=== PATIENT | female | born 1990 | race African-American/Black ===

== ENCOUNTER 2017-01-26 12:29 | Emergency (ER) | payer OTHER, MEDICAID ==
[2017-01-26 12:43] VITALS: BP 126/74; PULSE 77
--- NOTE | 2017-01-26 13:00 | PD ---
HPI Chief Complaint Right back and flank pain for 24 hours after vomiting. Date Seen: Jan 26, 2017 Time Seen: 12:53 Travel History International Travel<30 Days: No Contact w/Intl Traveler<30Days: No Known Affected Area: No History of Present Illness HPI Patient is 26-year-old black female at [address] Jerome for care presents with approximately 24 hours of worsening right back pain. Pain is mainly in the right flank and mid right back not in the CVA, the patient states the pain began her she was throwing up at home. She is been having nausea and vomiting at home for quite some time and is had no medication at home to take for that. heart rate tracing is reactive and contractions about 8 minutes apart and noted Weeks Gestation: 35 Para: 0 : 1 History Social History Alcohol Use: No Tobacco Use: No Substance Abuse: No Allergies-Medications (Allergen,Severity, Reaction): Uncoded Allergies: no known allergy (Allergy, Unknown, 01/26/17) Review of Systems General / Constitutional: No: Fever, Weight Gain, Chills, Other Eyes: No: Diploplia, Blurred Vision, Visual changes, Pain, Photophobia HENT: No: Headaches, Vertigo, Lightheadedness Cardiovascular: No: Irregular Rhythm, Chest Pain or Discomfort, Palpitations, Tachycardia, Syncope, Varicosities, Edema, Cyanosis Respiratory: No: Cough, Short of Breath, Other Gastrointestinal: No: Nausea, Vomiting, Diarrhea Genitourinary: No: Decreased Urinary Output, Oliguria Musculoskeletal: No: Limited ROM, Weakness, Cramping, Edema, Pain Skin: No Rash, No Itching, No Dryness, No Lumps, No Change in Pigmentation, No Change in Nails, No Alopecia, No Lesions Neurologic: No: Weakness, Dizziness, Syncope, Focal Abnormalities, Coordination Problem, Headache, Slurred Speech, Seizures Psychiatric: No: Depression, Suicidal Ideations, Homicidal Ideation Endocrine: No: Heat Intolerance, Cold Intolerance, Polydipsia, Polyuria, Other Physical Exam Vital Signs Date Time Temp Pulse Resp B/P (MAP) Pulse Ox O2 Delivery O2 Flow Rate FiO2 01/26/17 12:43 77 126/74 (91) Narrative GENERAL: Well-nourished, well-developed patient. SKIN: Warm and dry. HEAD: Normocephalic and atraumatic. EYES: No scleral icterus. No injection or drainage. ENT: No nasal drainage noted. Mucous membranes pink. Airway patent. NECK: Supple, trachea midline. No JVD. CARDIOVASCULAR: Regular rate and rhythm without murmurs, gallops, or rubs. RESPIRATORY: Breath sounds equal bilaterally. No accessory muscle use. BREASTS: Bilateral exam showed no masses , no retractions, no nipple discharge. ABDOMEN/GI: Abdomen soft, non-tender, bowel sounds present, no rebound, no guarding , no CVA tenderness on either side, very mild tenderness to palpation on the right flank mid back Gravid to [-35] weeks size Fundal Height: [-35] GENITOURINARY: External Genitalia: intact and normal in appearance BUS glands: [-] Cervix: [-Posterior] Dilatation: [1-] Effacement: [-Thick] Station: [-3] Presentation: [vtx-] Membranes: [intact ] Uterine Contractions: [Every 4 minutes approximately-] FHT's: Category: [1-] Baseline: [133-] Reactive: [yes-] Variability: [-mod] Decels: [none-] EXTREMITIES: No cyanosis or edema. BACK: Nontender without obvious deformity. No CVA tenderness. Some tenderness in the right flank and right mid back, but when I hit firmly in the CVA area she said that "felt good " NEUROLOGICAL: Awake and alert. Motor and sensory grossly within normal limits. Five out of 5 muscle strength in all muscle groups. Normal speech. Data Data Orders Orders Vital Signs (Adult) .ON ADMISSION (01/26/17 12:47) ^ Labor Status (01/26/17 12:47) Lactated Ringer's 1000 Ml Inj (Lr 1000 M (01/26/17 12:47) Fentanyl Inj (Fentanyl Inj) (01/26/17 13:00) Urinalysis - C+S If Indicated (01/26/17 12:49) Cbc No Diff, Includes Plts (01/26/17 12:49) Basic Metabolic Panel (Bmp) (01/26/17 12:49) Ob/Psych Drug Screen, Urine (01/26/17 12:49) Ondansetron Inj (Zofran Inj) (01/26/17 13:00) Metoclopramide Inj (Reglan Inj) (01/26/17 13:00) MDM Interpretation(s) 26-year-old white female at 35 weeks presents with right flank pain after vomiting at home. Urinalysis and clinical symptoms consistent with moderate to severe dehydration and no UTI,. CBC BMP within normal limits, patient given a liter of IV fluid IV Zofran and Reglan and 50 purnima grams fentanyl IV, she did improve after that with a decrease in her pain. What you contractions we were seeing stopped., heart rate tracing is reactive Plan Plan to discharge home to bedrest ,Tylenol, heating pad on her back and side , increase fluid intake, prescriptions for Phenergan by mouth and suppository, and follow-up with Dr. Jerome with the next several days if not improved Diagnosis Diagnosis: Primary Impression: Dehydration, moderate Additional Impression: Back pain complicating in third trimester Disposition: 01 DISCHARGE HOME Condition: Stable Scripts Promethazine Supp (Phenergan Supp) 25 Mg Supp 25 MG RECTAL Q6H Y for NAUSEA OR VOMITING for 5 Days, #6 SUPP 0 Refills Prov: Cooper Guthrie II, MD 01/26/17 Promethazine (Phenergan) 25 Mg Tablet 25 MG PO Q6H Y for NAUSEA OR VOMITING for 10 Days, #30 TAB 0 Refills Prov: Cooper Guthrie II, MD 01/26/17 Cooper Guthrie II, MD Jan 26, 2017 13:00
[2017-01-26 13:28] LABS: HEMATOCRIT 38.1 % (35.0-46.0); MEAN CELL VOLUME 91.9 FL (80.0-100.0); MEAN CORPUSCULAR HEMOGLOBIN 31.5 PG (27.0-34.0); MEAN CORPUSCULAR HGB CONC 34.3 % (32.0-36.0); PLATELET COUNT 296 TH/MM3 (150-450); RED BLOOD COUNT 4.14 MIL/MM3 (4.00-5.30); RED CELL DISTRIBUTION WIDTH 13.2 % (11.6-17.2); REVIEW FLAG FINAL
[2017-01-26 13:32] LABS: BACTERIA, URINE RARE /hpf; BLOOD, URINE NEG (NEG); COMMENT (UR) CULT NOT INDICATED; CULTURE IF INDICATED CULT NOT INDICATED; GLUCOSE,URINE NEG (NEG); KETONE, URINE 150 mg/dL (NEG); MUCUS URINE FEW /lpf (OCC); NITRITE,URINE NEG (NEG); PH, URINE 6.5 (5.0-8.5); SQUAMOUS EPITHELIAL CELL URINE 8 /hpf (0-5)
[2017-01-26 13:35] LABS: URINE COLOR DARK-ORANGE (YELLW/STRAW)
[2017-01-26 13:42] LABS: BICARBONATE 22.3 MEQ/L (21.0-32.0); POTASSIUM 3.9 MEQ/L (3.5-5.1)
[2017-01-26] MEDS ORDERED: PROM25TA10 PO (13:50)
[2017-01-26 13:51] VITALS: RESP 18
[2017-01-26] MEDS ORDERED: PROM1SUP7 RECTAL (13:51)
[2017-01-26] MEDS ORDERED: LACTATED RINGER'S 1000 ML INJ 1,000 ML IV SCH (14:00)
[2017-01-26] MEDS ORDERED: ONDANSETRON HCL 4 MG/2 ML VIAL IV PUSH ONE (14:00)
[2017-01-26] MEDS ORDERED: METOCLOPRAMIDE HCL 10 MG/2 ML VIAL IV PUSH ONE (14:00)
[2017-01-30 09:57] LABS: PHENCYCLIDINE URINE NEG (NEG)
[2017-01-30 09:58] LABS: BATH SALTS (MDPV) UR NEG (NEG); ECSTASY (MDMA) UR NEG (NEG); GABAPENTIN UR NEG (NEG); HEROIN (6-ACETYLMORPHINE) UR NEG (NEG); HYDROMORPHONE U NEG (NEG); K2 SPICE UR NEG (NEG); OBMETHADONE UR NEG (NEG)
== END 2017-01-26 14:30 | disposition home or self-care (01) ==
LOC: HOBED 12:29
DX: O99.283 Endocrine, nutritional and metabolic diseases complicating pregnancy, third trimester (principal); E86.0 Dehydration; M54.9 Dorsalgia, unspecified; Z3A.35 35 weeks gestation of pregnancy
CPT/HCPCS: 59025; 80048; 80307; 81001; 85027; 96361; 96374; 96375; 99284; G0481; J2405; J3010; J7120

== ENCOUNTER 2017-01-26 23:30 | Observation (INO) | payer OTHER, MEDICAID ==
[~2017-01-26] VITALS: Ht 162.6 cm; Wt 74.8 kg
[~2017-01-26 23:30] MED LIST: PROM1SUP7 RECTAL; PROM25TA10 PO
[2017-01-27] VITALS (13 sets, daily range): BP systolic 110–125; BP diastolic 65–88; PULSE 65–84; RESP 16–20; TEMP 98–98.7
--- NOTE | 2017-01-27 00:17 | HHI.HP ---
HPI Chief Complaint Continued abdominal and right back pain worsening since being seen here approximately 10-11 hours ago Date Seen: Jan 27, 2017 Time Seen: 12:01 Travel History International Travel<30 Days: No Contact w/Intl Traveler<30Days: No Known Affected Area: No History of Present Illness HPI Patient is 26-year-old black female at 35 weeks who presents complaining of increasing back pain on the right side and abdominal pain of this worsening since being seen here earlier yesterday approximately 10-11 hours ago, at that time patient's urine showed a lot of the bilirubin and urobilinogen 1+ protein but no infection also moderate large ketones, CBCs BMP were normal. heart rate is reactive and there are no regular contractions Weeks Gestation: 35 Para: 0 : 1 History Social History Alcohol Use: No Tobacco Use: No Substance Abuse: No Allergies-Medications (Allergen,Severity, Reaction): Uncoded Allergies: no known allergy (Allergy, Unknown, 01/26/17) Home Meds Active Scripts Promethazine Supp (Phenergan Supp) 25 Mg Supp, 25 MG RECTAL Q6H Y for NAUSEA OR VOMITING for 5 Days, #6 SUPP 0 Refills Prov:Cooper Guthrie II, MD 01/26/17 Promethazine (Phenergan) 25 Mg Tablet, 25 MG PO Q6H Y for NAUSEA OR VOMITING for 10 Days, #30 TAB 0 Refills Prov:Cooper Guthrie II, MD 01/26/17 Review of Systems General / Constitutional: No: Fever, Weight Gain, Chills, Other Eyes: No: Diploplia, Blurred Vision, Visual changes, Pain, Photophobia HENT: No: Headaches, Vertigo, Lightheadedness Cardiovascular: No: Irregular Rhythm, Chest Pain or Discomfort, Palpitations, Tachycardia, Syncope, Varicosities, Edema, Cyanosis Respiratory: No: Cough, Short of Breath, Other Gastrointestinal: Abdominal Pain, No: Nausea, Vomiting, Diarrhea Genitourinary: No: Decreased Urinary Output, Oliguria Musculoskeletal: No: Limited ROM, Weakness, Cramping, Edema, Pain Skin: No Rash, No Itching, No Dryness, No Lumps, No Change in Pigmentation, No Change in Nails, No Alopecia, No Lesions Neurologic: No: Weakness, Dizziness, Syncope, Focal Abnormalities, Coordination Problem, Headache, Slurred Speech, Seizures Psychiatric: No: Depression, Suicidal Ideations, Homicidal Ideation Endocrine: No: Heat Intolerance, Cold Intolerance, Polydipsia, Polyuria, Other Physical Exam Narrative GENERAL: Well-nourished, well-developed patient who is in moderate distress. SKIN: Warm and dry. HEAD: Normocephalic and atraumatic. EYES: No scleral icterus. No injection or drainage. ENT: No nasal drainage noted. Mucous membranes pink. Airway patent. NECK: Supple, trachea midline. No JVD. CARDIOVASCULAR: Regular rate and rhythm without murmurs, gallops, or rubs. RESPIRATORY: Breath sounds equal bilaterally. No accessory muscle use. BREASTS: Bilateral exam showed no masses , no retractions, no nipple discharge. ABDOMEN/GI: Abdomen soft, 1+-tender, bowel sounds present, no rebound, no guarding no CVA tenderness Gravid to [35-] weeks size Fundal Height: [35-] GENITOURINARY: External Genitalia: intact and normal in appearance BUS glands: [-] Cervix: [Posterior-] Dilatation: [1-] Effacement: [-50] Station: [-3] Presentation: [-vtx] Membranes: [intact ] Uterine Contractions: [-none] FHT's: Category: [-1] Baseline: [-133] Reactive: [yes-] Variability: [mod-] Decels: [none-] EXTREMITIES: No cyanosis or edema. BACK: Nontender without obvious deformity. No CVA tenderness. NEUROLOGICAL: Awake and alert. Motor and sensory grossly within normal limits. Five out of 5 muscle strength in all muscle groups. Normal speech. Caprini VTE Risk Assessment Caprini VTE Risk Assessment: No/Low Risk (score <= 1) Caprini Risk Assessment Model Point Value = 1 Point Value = 2 Point Value = 3 Point Value = 5 Age 41-60 Minor surgery BMI > 25 kg/m2 Swollen legs Varicose veins or History of unexplained or recurrent spontaneous Oral contraceptives or hormone replacement Sepsis (< 1 month) Serious lung disease, including pneumonia (< 1 month) Abnormal pulmonary function Acute myocardial infarction Congestive heart failure (< 1 month) History of inflammatory bowel disease Medical patient at bed rest Age 61-74 Arthroscopic surgery Major open surgery (> 45 min) Laparoscopic surgery (> 45 min) Malignancy Confined to bed (> 72 hours) Immobilizing plaster cast Central venous access Age >= 75 History of VTE Family history of VTE Factor V Leiden Prothrombin [id number] Lupus anticoagulant Anticardiolipin antibodies Elevated serum homocysteine Heparin-induced thrombocytopenia Other congenital or acquired thrombophilia Stroke (< 1 month) Elective arthroplasty Hip, pelvis, or leg fracture Acute spinal cord injury (< 1 month) Prophylaxis Regimen Total Risk Factor Score Risk Level Prophylaxis Regimen 0-1 Low Early ambulation 2 Moderate Order ONE of the following: *Sequential Compression Device (SCD) *Heparin 5000 units SQ BID 3-4 Higher Order ONE of the following medications: *Heparin 5000 units SQ TID *Enoxaparin/Lovenox 40 mg SQ daily (WT < 150 kg, CrCl > 30 mL/min) *Enoxaparin/Lovenox 30 mg SQ daily (WT < 150 kg, CrCl > 10-29 mL/min) *Enoxaparin/Lovenox 30 mg SQ BID (WT < 150 kg, CrCl > 30 mL/min) AND/OR *Sequential Compression Device (SCD) 5 or more Highest Order ONE of the following medications: *Heparin 5000 units SQ TID (Preferred with Epidurals) *Enoxaparin/Lovenox 40 mg SQ daily (WT < 150 kg, CrCl > 30 mL/min) *Enoxaparin/Lovenox 30 mg SQ daily (WT < 150 kg, CrCl > 10-29 mL/min) *Enoxaparin/Lovenox 30 mg SQ BID (WT < 150 kg, CrCl > 30 mL/min) AND *Sequential Compression Device (SCD) Assessment/Plan Assessment and Plan Patient is 26-year-old black female [address] Jerome for care and presents complaining of worsening abdominal and worsening right-sided back pain and flank pain since being seen earlier today. She denies bleeding or ruptured membranes heart rate tracing is reactive and she is not malu. Cervix is 1 cm 50% very posterior. Urinalysis done earlier today shows large ketones ,1+ protein, large urine bilirubin and urobilinogen, CBC and BMP were normal Impression is of abdominal pain at 35 weeks back pain worsening possible threatened labor, with urine showing large amounts of bilirubin and urobilinogen Plan is admission to 23-hour observation collect 24-hour protein urine, check CMP PT PTT, IV hydrate IV pain medication, probably a good idea to ultrasound kidneys at least the right kidney Cooper Guthrie II, MD Jan 27, 2017 00:17
[2017-01-27] MEDS ORDERED: ONDANSETRON HCL 4 MG/2 ML VIAL IV PRN (00:30)
[2017-01-27] MEDS ORDERED: ZOLPIDEM TARTRATE 5 MG TAB PO PRN (00:30)
[2017-01-27] MEDS ORDERED: SODIUM CHLORIDE 0.9% FLUSH 10 ML FLUSH IV FLUSH PRN (00:30)
[2017-01-27] MEDS: MORPHINE SULFATE 4 MG/ML INJ IV PUSH PRN ×2 (01:07→10:24)
[2017-01-27 01:44] LABS: BACTERIA, URINE OCC /hpf; BLOOD, URINE TRACE (NEG); COMMENT (UR) CULT NOT INDICATED; CULTURE IF INDICATED CULT NOT INDICATED; GLUCOSE,URINE NEG (NEG); KETONE, URINE TRACE mg/dL (NEG); MUCUS URINE FEW /lpf (OCC); NITRITE,URINE NEG (NEG); SQUAMOUS EPITHELIAL CELL URINE 4 /hpf (0-5); URINE COLOR YELLOW (YELLW/STRAW)
[2017-01-27 01:49] LABS: AUTOMATED NEUTROPHIL # 7.5 TH/MM3 (1.8-7.7); BASOPHIL # 0.1 TH/MM3 (0-0.2); BASOPHIL % 0.5 % (0.0-2.0); EOSINOPHIL # 0.2 TH/MM3 (0-0.4); EOSINOPHIL % 1.5 % (0.0-4.0); HEMATOCRIT 36.1 % (35.0-46.0); HEMO FLAGS DIFF FINAL; LYMPH % 17.1 % (9.0-44.0); LYMPHOCYTE # 1.8 TH/MM3 (1.0-4.8); MEAN CELL VOLUME 91.9 FL (80.0-100.0); MEAN CORPUSCULAR HGB CONC 34.8 % (32.0-36.0); MONO % 8.3 % (0.0-8.0); NEUT % 72.6 % (16.0-70.0); PLATELET COUNT 278 TH/MM3 (150-450); RED BLOOD COUNT 3.93 MIL/MM3 (4.00-5.30); RED CELL DISTRIBUTION WIDTH 13.3 % (11.6-17.2); WHITE BLOOD COUNT 10.4 TH/MM3 (4.0-11.0)
[2017-01-27 01:58] LABS: ANION GAP 8 MEQ/L (5-15); AST (GOT) 83 U/L (15-37); BICARBONATE 25.6 MEQ/L (21.0-32.0); BLOOD UREA NITROGEN 6 MG/DL (7-18); CHLORIDE 106 MEQ/L (98-107); GLOMERULAR FILTRATION RATE 97 ML/MIN (>89); POTASSIUM 3.1 MEQ/L (3.5-5.1); SODIUM (NA) 140 MEQ/L (136-145)
[2017-01-27 02:03] LABS: ALKALINE PHOSPHATASE 242 U/L (45-117); ALT (GPT) 130 U/L (10-53); TOTAL BILIRUBIN ADULT 1.8 MG/DL (0.2-1.0); URIC ACID 4.2 MG/DL (2.6-6.0)
[2017-01-27 02:04] LABS: APTT (PATIENT) 28.2 SEC (24.3-30.1); INTERNATIONAL NORMALIZED RATIO 0.9 RATIO; PROTHROMBIN TIME - PATIENT 9.8 SEC (9.8-11.6)
[2017-01-27] MEDS ORDERED: POTASSIUM CHLORIDE 10 MEQ CONTROLLED RELEASE TAB PO ONE (07:15)
[2017-01-27] MEDS: SODIUM CHLORIDE 0.9% FLUSH 10 ML FLUSH IV FLUSH SCH (09:00)
--- NOTE | 2017-01-27 09:34 | RADRPT ---
EXAM DATE/TIME: 01/27/2017 08:20 [facility] COMPARISON: No previous studies available for comparison. INDICATIONS : Right upper quadrant pain, nausea, and vomiting. MEDICAL HISTORY : Abdominal pain. 36 weeks . SURGICAL HISTORY : None. ENCOUNTER: Initial ACUITY: 1 day PAIN SCORE: 2/10 LOCATION: Bilateral upper quadrant MEASUREMENTS: LIVER: 13.9 cm length COMMON DUCT: 5 mm RIGHT KIDNEY: 10.8 x 5.0 x 6.3 cm LEFT KIDNEY: 10.9 x 5.6 x 5.9 cm SPLEEN: 10.0 cm length AORTA: 2.3cm maximal FINDINGS: LIVER: Normal echotexture without focal lesion or ductal dilatation. There is normal flow velocity and direc tion in the main portal vein. COMMON DUCT: No intraluminal mass or stone visualized. GALLBLADDER: Sludge and numerous tiny gravel-like stones. No gallbladder wall thickening or pericholecystic fluid. Negative sonographic Hughes sign. PANCREAS: The visualized portions are within normal limits. RIGHT KIDNEY: No hydronephrosis, stone or mass. LEFT KIDNEY: No hydronephrosis, stone or mass. SPLEEN: No focal lesion. AORTA: Non aneurysmal. IVC: Within normal limits. CONCLUSION: Moderate amount of sludge/tiny gravel-like stones in the gallbladder but no evidence of cholecystitis or biliary obstruction. Otherwise negative. Normal kidneys without hydronephrosis. J Carlos Miguel MD on January 27, 2017 at 9:31 Board Certified Radiologist. This report was verified electronically.
--- NOTE | 2017-01-27 09:41 | HHI.PR ---
Subjective Remarks Doing better with the pain Baby is moving well. Been having the pain for about one month Having problems with her insurance so she has not been in since September. Getting an U/S now and seems like sludge in the GB, No h/a, swelling or scotoma Objective Vital Signs Date Time Temp Pulse Resp B/P (MAP) Pulse Ox O2 Delivery O2 Flow Rate FiO2 01/27/17 07:24 98.1 18 01/27/17 07:21 66 125/88 (100) 01/27/17 04:51 16 01/27/17 04:51 98.7 01/27/17 04:51 65 112/76 (88) 01/27/17 04:00 16 01/27/17 03:00 16 01/27/17 02:00 18 01/27/17 01:12 98.3 69 122/79 (93) 01/27/17 01:10 20 Result Diagram: 01/27/17 0055 01/27/17 0055 Other Results Chest is clear CV RRR Abd is gravid and non tender. Fundus is non tender. Ext No CCE. Reflexes are +1 Assessment and Plan Assessment and Plan IUP at 35+ weeks Severe abdominal and back pain This most likely represents GB disease and will follow up on the U/S. Increased LFTs now c/w GB disease. Will get f/u labs tomorrow and monitor the results. Not been in the office since September. She wishes to retain me as her doctor but she needs her 28 week labs. Will order these labs now. Baldemar Jerome MD Jan 27, 2017 09:41
[2017-01-27] MEDS ORDERED: ACETAMINOPHEN/HYDROcodone 325 MG/7.5 MG TAB PO PRN (14:15)
[2017-01-28 01:51] VITALS: RESP 18
[2017-01-28 04:00] VITALS: RESP 16
[2017-01-28 05:55] VITALS: RESP 16
--- NOTE | 2017-01-28 08:13 | HHI.PR ---
Subjective Remarks Doing better today, Pain is 3/10 and in the epigastric area. No Bm in several days. Not really hungry. Baby is moving well Objective Vital Signs Date Time Temp Pulse Resp B/P (MAP) Pulse Ox O2 Delivery O2 Flow Rate FiO2 01/28/17 05:55 16 01/28/17 04:00 16 01/28/17 01:51 18 01/27/17 22:50 98.7 84 18 110/65 (80) 01/27/17 20:07 98.3 01/27/17 20:07 18 01/27/17 20:06 81 114/72 (86) 01/27/17 12:47 98.0 18 01/27/17 12:46 70 118/71 (87) Result Diagram: 01/27/17 0055 01/27/17 005 Other Results Abdomen is ssoft and slg tender in epigastric area. no rebound Ext No CCE Assessment and Plan Assessment and Plan IUP at 36/0 Severe abdominal and back pain. The U/S reveals multiple stones in the GB and I feel this is the etiology of the pain. Stressed the need to follow the diet strictly and avoid fatty foods. Will check labs this am and consider d/c home if stable soon. Hypokalemia will recheck her K today along with the LFTS. Increased LFTs will recheck the labs today. Expect she will not need to deliver soon so I would hold off on the steriods for now. Baldemar Jerome MD Jan 28, 2017 08:12
[2017-01-28] MEDS ORDERED: DOCUSATE SODIUM 50 MG/SENNA 8.6 MG TAB PO ONE (08:15)
[2017-01-28 08:30] VITALS: BP 110/78; PULSE 73
[2017-01-28 08:31] VITALS: RESP 20; TEMP 98.6
[2017-01-28] MEDS: SODIUM CHLORIDE 0.9% FLUSH 10 ML FLUSH IV FLUSH SCH ×2 (08:50→09:00)
[2017-01-28 10:49] LABS: AUTOMATED NEUTROPHIL # 5.1 TH/MM3 (1.8-7.7); BASOPHIL # 0.1 TH/MM3 (0-0.2); BASOPHIL % 0.7 % (0.0-2.0); EOSINOPHIL # 0.3 TH/MM3 (0-0.4); EOSINOPHIL % 3.7 % (0.0-4.0); HEMATOCRIT 35.3 % (35.0-46.0); HEMO FLAGS DIFF FINAL; LYMPH % 20.2 % (9.0-44.0); LYMPHOCYTE # 1.6 TH/MM3 (1.0-4.8); MEAN CELL VOLUME 91.6 FL (80.0-100.0); MEAN CORPUSCULAR HEMOGLOBIN 31.4 PG (27.0-34.0); MEAN CORPUSCULAR HGB CONC 34.2 % (32.0-36.0); MONO % 9.8 % (0.0-8.0); NEUT % 65.6 % (16.0-70.0); PLATELET COUNT 262 TH/MM3 (150-450); RED BLOOD COUNT 3.86 MIL/MM3 (4.00-5.30); RED CELL DISTRIBUTION WIDTH 13.3 % (11.6-17.2); WHITE BLOOD COUNT 7.7 TH/MM3 (4.0-11.0)
[2017-01-28 11:16] LABS: ALKALINE PHOSPHATASE 192 U/L (45-117); ALT (GPT) 71 U/L (10-53); ANION GAP 10 MEQ/L (5-15); AST (GOT) 25 U/L (15-37); BICARBONATE 22.3 MEQ/L (21.0-32.0); BLOOD UREA NITROGEN 6 MG/DL (7-18); CHLORIDE 108 MEQ/L (98-107); GLOMERULAR FILTRATION RATE 153 ML/MIN (>89); POTASSIUM 3.4 MEQ/L (3.5-5.1); SODIUM (NA) 140 MEQ/L (136-145); TOTAL BILIRUBIN ADULT 0.4 MG/DL (0.2-1.0)
[2017-01-28 11:16] LABS: INDIRECT BILIRUBIN 0.2 MG/DL (0.0-0.8); TOTAL BILIRUBIN ADULT 0.4 MG/DL (0.2-1.0)
[2017-01-28 12:23] VITALS: BP 104/66; PULSE 70; RESP 18
--- NOTE | 2017-01-28 15:04 | HHI.DCPOC ---
Discharge Care Plan Diagnosis: (1) Gall bladder disease Your Health Problems Are: Abdominal pain Report Symptoms to Your Doctor -Temperature above 100.5 degrees -Redness, of incision or excessive or foul smelling drainage -Unusual pain or calf pain -Increased vaginal bleeding -Painful or difficulty urinating -Feelings of extreme sadness or anxiety after 2 weeks Goals to Promote Your Health * To prevent worsening of your condition and complications * To maintain your health at the optimal level Directions to Meet Your Goals Take your medications as prescribed Follow your dietary instruction Follow activity as directed Ensure plenty of rest for recovery Drink fluids for hydration Keep your appointments as scheduled Take your immunizations and boosters as scheduled If your symptoms worsen call your PCP, if no PCP go to Urgent Care Center or Emergency Room Smoking is Dangerous to Your Health. Avoid second hand smoke Call the 24-hour crisis hotline for domestic abuse at [facility] Jan 28, 2017 15:04
--- NOTE | 2017-01-28 15:07 | HHI.DS ---
Admission Date Jan 27, 2017 at 00:09 Discharge Date: Jan 28, 2017 Admitting Diagnosis abdominal pain Diagnosis: (1) Abdominal pain ICD Codes: R10.9 - Unspecified abdominal pain (2) Elevated LFTs ICD Codes: R79.89 - Other specified abnormal findings of blood chemistry (3) Gall bladder disease ICD Codes: K82.9 - Disease of gallbladder, unspecified Brief History Patient is 26-year-old black female at 35 weeks who presents complaining of increasing back pain on the right side and abdominal pain of this worsening since being seen here earlier yesterday approximately 10-11 hours ago, at that time patient's urine showed a lot of the bilirubin and urobilinogen 1+ protein but no infection also moderate large ketones, CBCs BMP were normal. heart rate is reactive and there are no regular contractions Hospital Course pt c/o abdominal pain gall stones and sludge management of pain routine care Pt Condition on Discharge: Good Discharge Disposition: Discharge Home Discharge Instructions Diet Instructions: As Tolerated, No Restrictions Additional Diet Instructions: no fatty food Activities You Can Perform: Regular-No Restrictions Activities to Avoid: Strenuous Activity Follow up Referrals: [facility] - 1 Week @ [facility] Jan 28, 2017 15:07
== END 2017-01-28 15:46 | disposition home or self-care (01) ==
LOC: HOBED 23:30 → H2EA 01-27 00:09
PROVIDERS: ADMIT Obstetrics & Gynecology; ATTEND Obstetrics & Gynecology
DX: O26.613 Liver and biliary tract disorders in pregnancy, third trimester (principal); K80.20 Calculus of gallbladder without cholecystitis without obstruction; O99.343 Other mental disorders complicating pregnancy, third trimester; O99.283 Endocrine, nutritional and metabolic diseases complicating pregnancy, third trimester; E87.6 Hypokalemia; R79.89 Other specified abnormal findings of blood chemistry
CPT/HCPCS: 59025; 76700; 80053; 80307; 81001; 82951; 84550; 85025; 85610; 85730; 99285; G0378; G0481; J2270; J2405; 80074; 80076

== ENCOUNTER 2017-02-18 02:48 | Inpatient (IN) | payer OTHER, MEDICAID ==
[~2017-02-18] VITALS: Ht 170.2 cm; Wt 91.0 kg
[2017-02-18] VITALS (76 sets, daily range): BP systolic 91–136; BP diastolic 20–90; PULSE 62–209; RESP 16–20; TEMP 97.7–99
[2017-02-18] MEDS ORDERED: LACTATED RINGER'S 1000 ML INJ 1,000 ML IV PRN (03:46)
[2017-02-18] MEDS ORDERED: LACTATED RINGER'S 1000 ML INJ 1,000 ML IV SCH (03:46)
[2017-02-18] MEDS ORDERED: MINERAL OIL 10 ML VIAL TOPICAL PRN (04:00)
[2017-02-18] MEDS ORDERED: ONDANSETRON HCL 4 MG/2 ML VIAL IV PUSH PRN (04:00)
[2017-02-18] MEDS ORDERED: SODIUM CHLORID 0.9% 500 ML INJ 500 ML IV PRN (04:00)
[2017-02-18] MEDS ORDERED: CITRIC ACID-SODIUM CITRATE LIQ 30 ML UDC PO SCH (04:00)
[2017-02-18] MEDS ORDERED: LIDOCAINE HCL 1% 50 ML VIAL INFIL PRN (04:00)
[2017-02-18] MEDS ORDERED: OXYTOCIN 30 UNITS-500ML PREMIX 500 ML IV ONE (04:00)
[2017-02-18] MEDS ORDERED: LIDOCAINE HCL 1% 50 ML VIAL I-DERMAL PRN (04:00)
[2017-02-18 04:01] LABS: AUTOMATED NEUTROPHIL # 7.3 TH/MM3 (1.8-7.7); BASOPHIL % 0.3 % (0.0-2.0); EOSINOPHIL # 0.2 TH/MM3 (0-0.4); EOSINOPHIL % 1.8 % (0.0-4.0); HEMATOCRIT 36.6 % (35.0-46.0); HEMO FLAGS DIFF FINAL; LYMPH % 20.3 % (9.0-44.0); LYMPHOCYTE # 2.1 TH/MM3 (1.0-4.8); MEAN CELL VOLUME 91.9 FL (80.0-100.0); MEAN CORPUSCULAR HEMOGLOBIN 31.5 PG (27.0-34.0); MEAN CORPUSCULAR HGB CONC 34.3 % (32.0-36.0); MONO % 8.2 % (0.0-8.0); NEUT % 69.4 % (16.0-70.0); PLATELET COUNT 234 TH/MM3 (150-450); RED BLOOD COUNT 3.99 MIL/MM3 (4.00-5.30); RED CELL DISTRIBUTION WIDTH 12.9 % (11.6-17.2); WHITE BLOOD COUNT 10.5 TH/MM3 (4.0-11.0)
[2017-02-18] MEDS ORDERED: SODIUM CHLOR 0.9% 1000 ML INJ 1,000 ML IV PRN (04:06)
[2017-02-18 04:10] LABS: BACTERIA, URINE RARE /hpf; BLOOD, URINE NEG (NEG); COMMENT (UR) CULTURE INDICATED; CULTURE IF INDICATED CULTURE INDICATED; GLUCOSE,URINE NEG (NEG); KETONE, URINE NEG (NEG); NITRITE,URINE NEG (NEG); PH, URINE 6.5 (5.0-8.5); SQUAMOUS EPITHELIAL CELL URINE 7 /hpf (0-5); URINE COLOR YELLOW (YELLW/STRAW)
[2017-02-18] MEDS ORDERED: fentaNYL 2MCG-BUPIV 0.125% INJ 100 ML ONE (04:19)
[2017-02-18 04:32] LABS: ANION GAP 8 MEQ/L (5-15); AST (GOT) 12 U/L (15-37); BICARBONATE 23.1 MEQ/L (21.0-32.0); BLOOD UREA NITROGEN 6 MG/DL (7-18); CHLORIDE 111 MEQ/L (98-107); GLOMERULAR FILTRATION RATE 116 ML/MIN (>89); POTASSIUM 3.5 MEQ/L (3.5-5.1); SODIUM (NA) 142 MEQ/L (136-145)
[2017-02-18 04:35] LABS: ALKALINE PHOSPHATASE 187 U/L (45-117); ALT (GPT) 16 U/L (10-53); TOTAL BILIRUBIN ADULT 0.2 MG/DL (0.2-1.0)
[2017-02-18] MEDS ORDERED: OXYTOCIN 30 UNITS-500ML PREMIX 500 ML IV SCH ×2 (05:00→14:00)
--- NOTE | 2017-02-18 05:04 | HHI.HP ---
History & Physical H&P HPI Chief Complaint contractions Date Seen: Feb 18, 2017 Time Seen: 03:30 Travel History International Travel<30 Days: No Contact w/Intl Traveler<30Days: No Known Affected Area: No History of Present Illness HPI Pt is a 26 y/o G1 with iUP at 39 wks who presents with c/o contractions since 1 am. denies vb, lof. +FM Weeks Gestation: 39 Para: 0 : 1 History Past Medical History Narrative Medical h/o gallstones Past Surgical History Surgical History: No Previous Surgery Family History Family History: Negative Social History Alcohol Use: No Tobacco Use: No Substance Abuse: Yes (urine DOA +MJ) Allergies-Medications (Allergen,Severity, Reaction): Coded Allergies: No Known Allergies (Unverified , 01/27/17) Review of Systems General / Constitutional: Weight Gain, No: Fever, Weight Loss, Chills, Other Eyes: No: Diploplia, Blurred Vision, Visual changes, Pain, Photophobia, Other HENT: No: Headaches, Vertigo, Dental Difficulties, Lightheadedness, Other Cardiovascular: No: Irregular Rhythm, Chest Pain or Discomfort, Palpitations, Tachycardia, Syncope, Varicosities, Edema, Cyanosis, Other Respiratory: No: Cough, Short of Breath, Wheezing, Other Gastrointestinal: Abdominal Pain Genitourinary: No: Urgency, Frequency, Dysuria, Nocturia, Hematuria, Decreased Urinary Output, Oliguria, Hesitancy, Dribbling, Incontinence, Pelvic Pain, Dyspareunia, Discharge, Menorrhagia, Vaginal Bleeding, Other Musculoskeletal: No: Limited ROM, Weakness, Cramping, Edema, Pain, Other Skin: No Rash, No Itching, No Dryness, No Lumps, No Change in Pigmentation, No Change in Nails, No Alopecia, No Lesions, No Breast Lumps, No Breast Tenderness , No Breast Swelling, No Other Neurologic: No: Weakness, Dizziness, Syncope, Focal Abnormalities, Coordination Problem, Headache, Slurred Speech, Seizures, Other Psychiatric: No: Anxiety, Depression, Suicidal Ideations, Disorder of Thought, Mood Disorder, Substance Abuse, Homicidal Ideation, Other Endocrine: No: Heat Intolerance, Cold Intolerance, Polydipsia, Polyuria, Other Hematologic/Lymphatic: No Easy Bruising, No Lymph Node Enlargement, No Other Physical Exam 125/81 AF Narrative GENERAL: Well-nourished, well-developed patient. SKIN: Warm and dry. HEAD: Normocephalic and atraumatic. EYES: No scleral icterus. No injection or drainage. ENT: No nasal drainage noted. Mucous membranes pink. Airway patent. NECK: Supple, trachea midline. No JVD. CARDIOVASCULAR: Regular rate and rhythm without murmurs, gallops, or rubs. RESPIRATORY: Breath sounds equal bilaterally. No accessory muscle use. BREASTS: Bilateral exam showed no masses , no retractions, no nipple discharge. ABDOMEN/GI: Abdomen soft, non-tender, bowel sounds present, no rebound, no guarding Gravid GENITOURINARY: External Genitalia: intact and normal in appearance BUS glands: [wnl] Cervix: - Dilatation: 2 Effacement: 100 Station: -1 Presentation: [facility] Membranes: intact Uterine Contractions: 2-5 FHT's: Category: [] Baseline: 140 Reactive: yes Variability: mod Decels: occ variable deceleration EXTREMITIES: No cyanosis or edema. BACK: Nontender without obvious deformity. No CVA tenderness. NEUROLOGICAL: Awake and alert. Motor and sensory grossly within normal limits. Five out of 5 muscle strength in all muscle groups. Normal speech. Data Data Vital Signs Reviewed: Yes Orders Orders Ob (2e) Additional Admit Info (02/18/17 03:32) Admit To Inpatient (02/18/17 ) Code Status (02/18/17 03:46) Vital Signs (Adult) .Per protocol (02/18/17 03:46) Heart (02/18/17 03:46) Amnioinfusion (02/18/17 03:46) Urinary Catheter Management .ONCE (02/18/17 03:46) Diet Npo (02/18/17 Breakfast) Lactated Ringer's 1000 Ml Inj (Lr 1000 M (02/18/17 03:46) Lactated Ringer's 1000 Ml Inj (Lr 1000 M (02/18/17 03:46) Sodium Chlorid 0.9% 500 Ml Inj (Ns 500 M (02/18/17 04:00) Sodium Chlor 0.9% 1000 Ml Inj (Ns 1000 M (02/18/17 04:06) Lidocaine 1% Inj (50 Ml) (Xylocaine 1% I (02/18/17 04:00) Citric Acid-Sodium Citrate Liq (Bicitra (02/18/17 04:00) Ondansetron Inj (Zofran Inj) (02/18/17 04:00) Fentanyl Inj (Fentanyl Inj) (02/18/17 04:00) Fentanyl Inj (Fentanyl Inj) (02/18/17 04:00) Complete Blood Count With Diff (02/18/17 03:46) Hold Clot (02/18/17 03:46) Abo/Rh Blood Type (02/18/17 03:46) Urinalysis - C+S If Indicated (02/18/17 03:46) Resp Oxygen Non Rebreathe Mask (02/18/17 ) ^ Epidural / Intrathecal Infus (02/18/17 03:46) Oxytocin 30 Units-500ml Premix (Pitocin (02/18/17 04:00) Lidocaine 1% Inj (50 Ml) (Xylocaine 1% I (02/18/17 04:00) Light Mineral Oil (Muri-Lube Oil) (02/18/17 04:00) Inpatient Certification (02/18/17 ) Comprehensive Metabolic Panel (02/18/17 03:49) Urine Culture (02/18/17 03:35) Ob/Psych Drug Screen, Urine (02/18/17 04:12) Fentanyl 2mcg-Bupiv 0.125% Inj (Fentanyl (02/18/17 04:19) Ur Bath Salts (02/18/17 03:35) Ur Heroin (02/18/17 03:35) Ur K2 Spice (02/18/17 03:35) Ur Ecstasy (02/18/17 03:35) Phencyclidine Urine (Pcp) (02/18/17 03:35) ^ Non Stress Test (02/18/17 04:53) Response To Medication .Post New Med Administration, Reaction (02/18/17 04:53) ^ Discontinue Medication (02/18/17 04:53) Oxytocin Drip (2-2-30) (02/18/17 05:00) Labs Laboratory Tests Test 02/18/17 03:35 02/18/17 03:40 Urine Color YELLOW Urine Turbidity HAZY Urine pH 6.5 Urine Specific [place] 1.014 Urine Protein NEG Urine Glucose (UA) NEG Urine Ketones NEG Urine Occult Blood NEG Urine Nitrite NEG Urine Bilirubin NEG Urine Urobilinogen LESS THAN 2.0 Urine Leukocyte Esterase LARGE Urine RBC LESS THAN 1 Urine WBC 15 Urine Squamous Epithelial Cells 7 Urine Bacteria RARE Microscopic Urinalysis Comment CULTURE INDICATED Urine Opiates Screen NEG Urine Barbiturates Screen NEG Urine Amphetamines Screen NEG Urine Benzodiazepines Screen NEG Urine Cocaine Screen NEG Urine Cannabinoids Screen NEG White Blood Count 10.5 Red Blood Count 3.99 Hemoglobin 12.6 Hematocrit 36.6 Mean Corpuscular Volume 91.9 Mean Corpuscular Hemoglobin 31.5 Mean Corpuscular Hemoglobin Concent 34.3 Red Cell Distribution Width 12.9 Platelet Count 234 Mean Platelet Volume 8.7 Neutrophils (%) (Auto) 69.4 Lymphocytes (%) (Auto) 20.3 Monocytes (%) (Auto) 8.2 Eosinophils (%) (Auto) 1.8 Basophils (%) (Auto) 0.3 Neutrophils # (Auto) 7.3 Lymphocytes # (Auto) 2.1 Monocytes # (Auto) 0.9 Eosinophils # (Auto) 0.2 Basophils # (Auto) 0.0 CBC Comment DIFF FINAL Differential Comment Blood Urea Nitrogen 6 Creatinine 0.74 Random Glucose 82 Total Protein 6.5 Albumin 2.6 Calcium Level 8.6 Alkaline Phosphatase 187 Aspartate Amino Transf (AST/SGOT) 12 Alanine Aminotransferase (ALT/SGPT) 16 Total Bilirubin 0.2 Sodium Level 142 Potassium Level 3.5 Chloride Level 111 Carbon Dioxide Level 23.1 Anion Gap 8 Estimat Glomerular Filtration Rate 116 Date/Time Source Procedure Growth Status 02/18/17 03:35 Urine Clean Catch Urine Culture Pending Received [facility] Medical Record Reviewed: Yes Narrative Course / MDM 26 y/o G1 with IUP at 39 wks in early labor occ variable decelerations admit for delivery pitocin augmentation prn gbs unknown report given to Dr. Jerome. Dr. Jerome states patient discharged from practice secondary to noncompliance. OB hospitalist will admit/manage. Leda Anders MD Feb 18, 2017 04:59 Leda Anders MD Feb 18, 2017 05:04
[2017-02-18] MEDS ORDERED: DO NOT ADMINISTER ANTICOAGULANTS PRN (05:15)
[2017-02-18] MEDS ORDERED: NO SYSTEM NARCOTICS PRN (05:15)
[2017-02-18] MEDS ORDERED: ePHEDrine/NS 25 MG/5 ML SYR IV PRN (05:15)
[2017-02-18] MEDS: fentaNYL 2MCG-BUPIV 0.125% 100 ML EPIDURAL SCH ×2 (05:21→11:34)
[2017-02-18] MEDS ORDERED: PREN1PAK9 PO (05:30)
[2017-02-18] MEDS ORDERED: PENICILLIN G POTASSIUM INJ 5,000,000 UNITS in SODIUM CHLORIDE 0.9% INJ 100 ML IV ONE (09:00)
[2017-02-18] MEDS ORDERED: PENICILLIN G POTASSIUM INJ 2,500,000 UNITS in SODIUM CHLORIDE 0.9% INJ 100 ML IV SCH (13:00)
--- NOTE | 2017-02-18 13:56 | PD.OB.DELI ---
Weeks gestation: 39 Gest age assessed date: Feb 18, 2017 Gest age assessed time: 13:46 Pt started active labor?: Yes Active labor start date: Feb 18, 2017 Medical induction of labor?: No Artificial rupture of membrane: No Anesthesia: Epidural Episiotomy: None Vaginal Delivery: Normal Presentation: Occiput anterior Nuchal Cord: None Delayed cord clamping (45 sec): No Infant: Male Delivery date: Feb 18, 2017 Delivery time: 13:30 One Minute : 9 Five Minute : 9 Weight: 2935 Placenta: Spontaneous delivery, Intact, 3 vessel cord Laceration: Perineal laceration, 1 deg (one laceration inferior to urethra, on laceration at right ) Repair: Chromic interrupted (inferior urethral), Chromic running (perioneal) Estimated blood loss: 250 ml Evelyn Ingram MD R1 Feb 18, 2017 13:56
[2017-02-18] MEDS ORDERED: BENZOCAINE 20% TOPICAL SPRAY 60 ML CAN TOPICAL PRN (14:00)
[2017-02-18] MEDS ORDERED: WITCH HAZEL 50%/GLYCERIN 12.5% 40 PAD JAR TOPICAL PRN (14:00)
[2017-02-18] MEDS ORDERED: ALUMINUM/MAGNESIUM/SIMETH 30 ML CUP PO PRN (14:00)
[2017-02-18] MEDS ORDERED: ONDANSETRON ODT 4 MG TAB PO PRN (14:00)
[2017-02-18] MEDS ORDERED: ZOLPIDEM TARTRATE 5 MG TAB PO PRN (14:00)
[2017-02-18] MEDS ORDERED: ACETAMINOPHEN 325 MG TAB PO PRN (14:00)
[2017-02-18] MEDS ORDERED: SODIUM CHLORIDE 0.9% FLUSH 10 ML FLUSH IV FLUSH PRN (14:00)
[2017-02-18] MEDS: IBUPROFEN 600 MG TAB PO PRN (15:41)
[2017-02-18] MEDS ORDERED: MEASLES, MUMPS, RUBELLA VACCINE 0.5 ML VIAL SQ ONE (16:00)
[2017-02-18] MEDS ORDERED: DIPHTH/TETANUS/ACEL PERTUSSIS (BOOSTER) 0.5 ML VIAL/PFS IM ONE (16:00)
[2017-02-18] MEDS: oxyCODONE/ACETAMINOPHEN 5 MG/325 MG TAB PO PRN (20:39)
[2017-02-18] MEDS ORDERED: SODIUM CHLORIDE 0.9% FLUSH 10 ML FLUSH IV FLUSH SCH (21:00)
[2017-02-19] MEDS: oxyCODONE/ACETAMINOPHEN 5 MG/325 MG TAB PO PRN ×4 (01:50→21:20)
[2017-02-19] MEDS: IBUPROFEN 600 MG TAB PO PRN ×4 (01:50→21:20)
[2017-02-19 08:00] VITALS: BP 105/70; PULSE 68; RESP 18; TEMP 97.7
[2017-02-19] MEDS: DOCUSATE SODIUM 50 MG/SENNA 8.6 MG TAB PO PRN ×2 (08:07→21:20)
--- NOTE | 2017-02-19 10:32 | HHI.OB ---
Subjective Post Day: 1 Objective Vitals/I&O Vital Signs Date Time Temp Pulse Resp B/P (MAP) Pulse Ox O2 Delivery O2 Flow Rate FiO2 02/18/17 11:34 16 Objective Remarks GENERAL: Well-nourished, well-developed patient. CARDIOVASCULAR: Regular rate and rhythm without murmurs, gallops, or rubs. RESPIRATORY: Breath sounds equal bilaterally. No accessory muscle use. ABDOMEN/GI: Abdomen soft, non-tender. Fundus: Firm, non-tender at umbilicus. GENITOURINARY: Light to moderate bleeding. EXTREMITIES: No cyanosis or edema, non-tender, without signs of DVT. Medications and IVs Current Medications Medications (Trade) Dose Ordered Sig/Kaykay Route Start Time Stop Time Status Last Admin Lactated Ringer's 1,000 ml @ 125 mls/hr Q8H IV 02/18/17 03:46 02/18/17 05:20 Lactated Ringer's 1,000 ml @ 3,000 mls/hr Q20M PRN IV 02/18/17 03:46 Sodium Chloride 500 ml @ 1,000 mls/hr ONCE PRN IV 02/18/17 04:00 02/18/17 10:47 Sodium Chloride 1,000 ml @ 100 mls/hr Q10H PRN IV 02/18/17 04:06 (Xylocaine 1% Inj (50 ml)) 0.1 ml UNSCH X1 PRN I-DERMAL 02/18/17 04:00 02/21/17 03:59 (Bicitra Liq) 30 ml UNDERCOLLAR MAKER PO 02/18/17 04:00 02/22/17 03:59 (fentaNYL INJ) 50 mcg Q1H PRN IV PUSH 02/18/17 04:00 (fentaNYL INJ) 100 mcg Q1H PRN IV PUSH 02/18/17 04:00 (Xylocaine 1% Inj (50 ml)) 10 ml UNSCH X1 PRN INFIL 02/18/17 04:00 02/20/17 03:59 (Muri-Lube Oil) 10 ml UNSCH PRN TOPICAL 02/18/17 04:00 Oxytocin 500 ml @ 0 mls/hr TITRATE IV 02/18/17 05:00 02/18/17 06:38 Fentanyl/ Bupivacaine HCl 100 ml @ 0 mls/hr TITRATE EPIDURAL 02/18/17 05:15 02/18/17 11:34 Penicillin G Potassium [id number] units/Sodium Chloride 100 ml @ 200 mls/hr Q4H IV 02/18/17 13:00 (NS Flush) 2 ml BID IV FLUSH 02/18/17 21:00 (NS Flush) 2 ml UNSCH PRN IV FLUSH 02/18/17 14:00 (Tylenol) 650 mg Q4H PRN PO 02/18/17 14:00 (Motrin) 600 mg Q6H PRN PO 02/18/17 14:00 02/19/17 08:07 (Percocet 5-325 Mg) 1 tab Q4H PRN PO 02/18/17 14:00 02/19/17 01:50 (Percocet 5-325 Mg) 2 tab Q4H PRN PO 02/18/17 14:00 02/19/17 08:07 (Americaine 20% Top Spr) 1 spray Q4H PRN TOPICAL 02/18/17 14:00 02/18/17 20:39 (Tucks Pads) 1 applic QID PRN TOPICAL 02/18/17 14:00 02/18/17 20:39 (Margaret-Colace) 2 tab Q12H PRN PO 02/18/17 14:00 02/19/17 08:07 (Ambien) 5 mg HS PRN PO 02/18/17 14:00 (Mag-Al Plus Susp Liq) 15 ml Q8H PRN PO 02/18/17 14:00 (Zofran Odt) 4 mg Q6H PRN PO 02/18/17 14:00 Assessment/Plan Problem List: (1) Normal vaginal delivery ICD Codes: O80 - Encounter for full-term uncomplicated delivery Assessment and Plan PT DOING WELL PAIN WELL MANAGED WITH ORAL PAIN MEDICATION PT BREAST FEEDING ROUTINE CARE Discharge Planning DC HOME TOMORROW Che Brown Feb 19, 2017 10:31
[2017-02-19 21:10] VITALS: BP 121/75; PULSE 74; RESP 17; TEMP 98.2
[2017-02-20] MEDS: oxyCODONE/ACETAMINOPHEN 5 MG/325 MG TAB PO PRN ×2 (03:32→08:04)
[2017-02-20] MEDS: IBUPROFEN 600 MG TAB PO PRN ×2 (03:32→09:54)
[2017-02-20 08:00] VITALS: BP 121/70; PULSE 67; RESP 16; TEMP 98.1
[2017-02-20] MEDS ORDERED: IBUP-232 PO (08:23)
[2017-02-20] MEDS ORDERED: OXYC1TAB63 PO (08:23)
--- NOTE | 2017-02-20 09:33 | HHI.OB ---
Subjective Post Day: 2 Objective Vitals/I&O VSS 121/71 R16 T98.1 P 67 Objective Remarks GENERAL: Well-nourished, well-developed patient. CARDIOVASCULAR: Regular rate and rhythm without murmurs, gallops, or rubs. RESPIRATORY: Breath sounds equal bilaterally. No accessory muscle use. ABDOMEN/GI: Abdomen soft, non-tender. Fundus: Firm, non-tender at umbilicus. GENITOURINARY: Light to moderate bleeding. EXTREMITIES: No cyanosis or edema, non-tender, without signs of DVT. Medications and IVs Current Medications Medications (Trade) Dose Ordered Sig/Kaykay Route Start Time Stop Time Status Last Admin Lactated Ringer's 1,000 ml @ 125 mls/hr Q8H IV 02/18/17 03:46 02/18/17 05:20 Lactated Ringer's 1,000 ml @ 3,000 mls/hr Q20M PRN IV 02/18/17 03:46 Sodium Chloride 500 ml @ 1,000 mls/hr ONCE PRN IV 02/18/17 04:00 02/18/17 10:47 Sodium Chloride 1,000 ml @ 100 mls/hr Q10H PRN IV 02/18/17 04:06 (Xylocaine 1% Inj (50 ml)) 0.1 ml UNSCH X1 PRN I-DERMAL 02/18/17 04:00 02/21/17 03:59 (Bicitra Liq) 30 ml PLATFORM SUPERVISOR PO 02/18/17 04:00 02/22/17 03:59 (fentaNYL INJ) 50 mcg Q1H PRN IV PUSH 02/18/17 04:00 (fentaNYL INJ) 100 mcg Q1H PRN IV PUSH 02/18/17 04:00 (Muri-Lube Oil) 10 ml UNSCH PRN TOPICAL 02/18/17 04:00 Oxytocin 500 ml @ 0 mls/hr TITRATE IV 02/18/17 05:00 02/18/17 06:38 Fentanyl/ Bupivacaine HCl 100 ml @ 0 mls/hr TITRATE EPIDURAL 02/18/17 05:15 02/18/17 11:34 Penicillin G Potassium [id number] units/Sodium Chloride 100 ml @ 200 mls/hr Q4H IV 02/18/17 13:00 (NS Flush) 2 ml BID IV FLUSH 02/18/17 21:00 (NS Flush) 2 ml UNSCH PRN IV FLUSH 02/18/17 14:00 (Tylenol) 650 mg Q4H PRN PO 02/18/17 14:00 (Motrin) 600 mg Q6H PRN PO 02/18/17 14:00 02/20/17 03:32 (Percocet 5-325 Mg) 1 tab Q4H PRN PO 02/18/17 14:00 02/19/17 01:50 (Percocet 5-325 Mg) 2 tab Q4H PRN PO 02/18/17 14:00 02/20/17 08:04 (Americaine 20% Top Spr) 1 spray Q4H PRN TOPICAL 02/18/17 14:00 02/18/17 20:39 (Tucks Pads) 1 applic QID PRN TOPICAL 02/18/17 14:00 02/18/17 20:39 (Margaret-Colace) 2 tab Q12H PRN PO 02/18/17 14:00 02/19/17 21:20 (Ambien) 5 mg HS PRN PO 02/18/17 14:00 (Mag-Al Plus Susp Liq) 15 ml Q8H PRN PO 02/18/17 14:00 (Zofran Odt) 4 mg Q6H PRN PO 02/18/17 14:00 Assessment/Plan Problem List: (1) Normal vaginal delivery ICD Codes: O80 - Encounter for full-term uncomplicated delivery Assessment and Plan PT DOING WELL PAIN WELL MANAGED WITH ORAL PAIN MEDICATION ROUTINE CARE Discharge Planning DC HOME TODAY Che Brown Feb 20, 2017 09:33
--- NOTE | 2017-02-20 09:34 | HHI.DCPOC ---
Discharge Care Plan Diagnosis: (1) Normal vaginal delivery Report Symptoms to Your Doctor -Temperature above 100.5 degrees -Redness, of incision or excessive or foul smelling drainage -Unusual pain or calf pain -Increased vaginal bleeding -Painful or difficulty urinating -Feelings of extreme sadness or anxiety after 2 weeks Goals to Promote Your Health * To prevent worsening of your condition and complications * To maintain your health at the optimal level Directions to Meet Your Goals Take your medications as prescribed Follow your dietary instruction Follow activity as directed Ensure plenty of rest for recovery Drink fluids for hydration Keep your appointments as scheduled Take your immunizations and boosters as scheduled If your symptoms worsen call your PCP, if no PCP go to Urgent Care Center or Emergency Room Smoking is Dangerous to Your Health. Avoid second hand smoke Call the 24-hour crisis hotline for domestic abuse at Che Brown Feb 20, 2017 09:34
--- NOTE | 2017-02-20 09:52 | HHI.DS ---
Admission Date Feb 18, 2017 at 03:33 Discharge Date: Feb 20, 2017 Admitting Diagnosis 39 WEEKS LABOR Diagnosis: (1) Normal vaginal delivery Diagnosis: Principal ICD Codes: O80 - Encounter for full-term uncomplicated delivery Delivery Date: Feb 18, 2017 Vaginal Delivery: Normal : Male Brief History Pt is a 26 y/o G1 with iUP at 39 wks who presents with c/o contractions since 1 am. denies vb, lof. +FM Hospital Course ROUTINE CARE Pt Condition on Discharge: Good Discharge Disposition: Discharge Home Discharge Instructions Diet Instructions: As Tolerated, No Restrictions Additional Diet Instructions: Drink at least 8 - 16 oz bottles of water a day Activities You Can Perform: Shower Only-No Bath, Sitz Bath Activities to Avoid: Lifting/Bending, Sexual Activity Additional Activity Instruc.: No driving until off pain medications Do not lift anything heavier than your baby in an carrier Follow up Referrals: [facility] FERRIER - 2 Weeks @ [facility] [place] New Medications: Ibuprofen (Ibuprofen) 600 Mg Tab 600 MG PO Q6H PRN for CRAMPING, #30 TAB Oxycodone-Acetaminophen (Oxycodone-Acetaminophen) 5-325 mg Tab 1 TAB PO Q4H PRN for moderate pain, #15 TAB Continued Medications: Mv & Min W/Fe Prot Rodriguez ( + Complete Multi 18-0.8 & 290 mg) 18 Mg Iron-800 Mcg-290 Mg-225 Mg Romel 1 TAB PO DAILY Che Brown Feb 20, 2017 09:52
[2017-02-20] MEDS: DOCUSATE SODIUM 50 MG/SENNA 8.6 MG TAB PO PRN (09:54)
[2017-02-23 11:52] LABS: BATH SALTS (MDPV) UR NEG (NEG); ECSTASY (MDMA) UR NEG (NEG); GABAPENTIN UR NEG (NEG); HEROIN (6-ACETYLMORPHINE) UR NEG (NEG); HYDROMORPHONE U NEG (NEG); K2 SPICE UR NEG (NEG); OBMETHADONE UR NEG (NEG); PHENCYCLIDINE URINE NEG (NEG)
== END 2017-02-20 12:55 | disposition home or self-care (01) | DRG 775 ==
LOC: HOBED 02:48 → H2EB 03:33 → H1EA 16:21
PROVIDERS: ADMIT Obstetrics & Gynecology; ATTEND Obstetrics & Gynecology
PROC: 10E0XZZ Delivery of Products of Conception, External Approach (ICD-10-PCS; principal; 2017-02-18)
PROC: 0HQ9XZZ Repair Perineum Skin, External Approach (ICD-10-PCS; 2017-02-18)
DX: O70.0 First degree perineal laceration during delivery (principal); Z37.0 Single live birth; Z3A.39 39 weeks gestation of pregnancy
CPT/HCPCS: 80053; 80307; 81001; 85025; 86900; 86901; 87086; 90715; 99285; G0481; J2540; J2590; J7040; J7120

== ENCOUNTER 2017-03-27 04:15 | Emergency (ER) | payer MEDICAID, OTHER ==
[~2017-03-27] VITALS: Ht 170.2 cm; Wt 88.0 kg
[~2017-03-27 04:15] MED LIST changes: +IBUP-232 PO; +OXYC1TAB63 PO; +PREN1PAK9 PO; -PROM1SUP7 RECTAL; -PROM25TA10 PO
[2017-03-27 04:19] VITALS: BP 135/80; PULSE 71; RESP 16; TEMP 98.5; O2SAT 99
[2017-03-27] MEDS ORDERED: SODIUM CHLOR 0.9% 1000 ML INJ 1,000 ML IV SCH (04:38)
[2017-03-27] MEDS ORDERED: ONDANSETRON HCL 4 MG/2 ML VIAL IVP ONE (04:45)
[2017-03-27] MEDS ORDERED: MORPHINE SULFATE 4 MG/ML INJ IV PUSH ONE (04:45)
[2017-03-27] MEDS ORDERED: SODIUM CHLORIDE 0.9% FLUSH 10 ML FLUSH IV FLUSH PRN (04:45)
--- NOTE | 2017-03-27 04:48 | PD ---
HPI . Abdominal pain Chief Complaint: GI Complaint Time Seen by Provider: 04:35 Travel History International Travel<30 days: No Contact w/Intl Traveler<30days: No Traveled to known affect area: No History of Present Illness HPI This patient presents with chief complaint of abdominal pain. Onset was a week ago. She describes a "scorching" pain in her epigastrium and right upper quadrant which radiates through to her back. She rates the pain at 10/10. It is associated with occasional nausea and vomiting. She states that she has vomited every other day at about 3:00 in the morning. No fever. No urinary tract symptoms. Patient reports she was diagnosed with gallbladder disease when she was . That was in January of this year. She states that she has been fine since she was initially diagnosed. Therefore, she has not sought surgical consultation. [facility] Past Medical History Medical History: Denies Significant Hx ?: Not Past Surgical History Surgical History: No Previous Surgery Social History Alcohol Use: No Tobacco Use: No Substance Use: No Allergies-Medications (Allergen,Severity, Reaction): Coded Allergies: No Known Allergies (Unverified Adverse Reaction, Unknown, 03/27/17) Reported Meds & Prescriptions Reported Meds & Active Scripts Active Phenergan (Promethazine HCl) 25 Mg Tablet 25 Mg PO Q6H PRN Orange (Hydrocodone-Acetaminophen) 5-325 mg Tab 1 Tab PO Q4H PRN Review of Systems Except as stated in HPI: all other systems reviewed are Neg General / Constitutional: No: Fever, Chills Cardiovascular: No: Chest Pain or Discomfort Respiratory: No: Shortness of Breath Gastrointestinal: Positive: Nausea, Vomiting, Abdominal Pain, No: Diarrhea Genitourinary: No: Urgency, Frequency, Dysuria Physical Exam Narrative GENERAL: Patient is sitting stretcher crosslegged rocking [id number]. SKIN: warm/dry. HEAD: Normocephalic. Atraumatic. EYES: Pupils equal and round. No scleral icterus. No injection or drainage. ENT: No nasal bleeding or discharge. Mucous membranes pink and moist. NECK: Trachea midline. Full range of motion without pain.. CARDIOVASCULAR: Regular rate and rhythm. Heart sounds normal. RESPIRATORY: No accessory muscle use. Clear to auscultation. Breath sounds equal bilaterally. GASTROINTESTINAL: Abdomen soft. Epigastric and right upper quadrant tenderness. Bowel sounds present. Nondistended. MUSCULOSKELETAL: No obvious deformities. NEUROLOGICAL: Awake and alert. No obvious cranial nerve deficits. Motor grossly within normal limits. Normal speech. PSYCHIATRIC: Appropriate mood and affect; insight and judgment normal. Data Data Last Documented VS Vital Signs Date Time Temp Pulse Resp B/P (MAP) Pulse Ox O2 Delivery O2 Flow Rate FiO2 03/27/17 04:19 98.5 71 16 135/80 (98) 99 Room Air Orders Orders Complete Blood Count With Diff (03/27/17 04:38) Comprehensive Metabolic Panel (03/27/17 04:38) Lipase (03/27/17 04:38) Urinalysis - C+S If Indicated (03/27/17 04:38) Iv Access Insert/Monitor (03/27/17 04:38) Morphine Inj (Morphine Inj) (03/27/17 04:45) Ondansetron Inj (Zofran Inj) (03/27/17 04:45) Sodium Chlor 0.9% 1000 Ml Inj (Ns 1000 M (03/27/17 04:38) Sodium Chloride 0.9% Flush (Ns Flush) (03/27/17 04:45) Ed Urine Pregnancytest Poc (03/27/17 04:38) Ed Discharge Order (03/27/17 05:47) Labs Laboratory Tests Test 03/27/17 04:44 White Blood Count 8.6 TH/MM3 Red Blood Count 4.10 MIL/MM3 Hemoglobin 12.6 GM/DL Hematocrit 37.5 % Mean Corpuscular Volume 91.5 FL Mean Corpuscular Hemoglobin 30.8 PG Mean Corpuscular Hemoglobin Concent 33.7 % Red Cell Distribution Width 12.6 % Platelet Count 259 TH/MM3 Mean Platelet Volume 8.0 FL Neutrophils (%) (Auto) 68.7 % Lymphocytes (%) (Auto) 21.8 % Monocytes (%) (Auto) 7.1 % Eosinophils (%) (Auto) 1.8 % Basophils (%) (Auto) 0.6 % Neutrophils # (Auto) 5.9 TH/MM3 Lymphocytes # (Auto) 1.9 TH/MM3 Monocytes # (Auto) 0.6 TH/MM3 Eosinophils # (Auto) 0.2 TH/MM3 Basophils # (Auto) 0.1 TH/MM3 CBC Comment DIFF FINAL Differential Comment Blood Urea Nitrogen 11 MG/DL Creatinine 0.88 MG/DL Random Glucose 94 MG/DL Total Protein 7.3 GM/DL Albumin 3.6 GM/DL Calcium Level 8.1 MG/DL Alkaline Phosphatase 131 U/L Aspartate Amino Transf (AST/SGOT) 41 U/L Alanine Aminotransferase (ALT/SGPT) 45 U/L Total Bilirubin 0.4 MG/DL Sodium Level 142 MEQ/L Potassium Level 3.5 MEQ/L Chloride Level 106 MEQ/L Carbon Dioxide Level 25.8 MEQ/L Anion Gap 10 MEQ/L Estimat Glomerular Filtration Rate 95 ML/MIN Lipase 161 U/L [facility] Medical Decision Making Medical Screen Exam Complete: Yes Emergency Medical Condition: Yes Medical Record Reviewed: Yes (patient had an ultrasound on 01/27 which showed gallbladder sludge but no evidence of cholecystitis.) Differential Diagnosis Differential diagnosis of abdominal pain includes but is not limited to gastritis, pancreatitis, hepatitis, gastroenteritis, gallbladder disease, constipation, urinary retention, UTI, peptic ulcer disease, diverticulitis or appendicitis Narrative Course This patient presents with epigastric and right upper quadrant abdominal pain which radiates through to her. She has known gallbladder sludge. An IV has been started and she is being given pain medication. CBC, CMP and lipase are pending as well as an hCG. HCG neg CBC & BMP Diagram 03/27/17 04:44 Total Protein 7.3, Albumin 3.6, Calcium Level 8.1 L, Alkaline Phosphatase 131 H , Aspartate Amino Transf (AST/SGOT) 41 H, Alanine Aminotransferase (ALT/SGPT) 45 , Total Bilirubin 0.4 Patient reports that she is feeling better. She looks well. She does not have any laboratory evidence of acute cholecystitis. Diagnosis Primary Impression: Abdominal pain Qualified Codes: R10.13 - Epigastric pain Additional Impression: Gall bladder disease Referrals: Hi Brown MD Patient Instructions: Biliary Colic (DC), General Instructions, Narcotic given in the ED Med/Other Pt SpecificInfo: Prescription(s) given Scripts Promethazine (Phenergan) 25 Mg Tablet 25 MG PO Q6H Y for NAUSEA OR VOMITING, #12 TAB 0 Refills Prov: Jacque Merrill MD 03/27/17 Hydrocodone-Acetaminophen (Orange) 5-325 mg Tab 1 TAB PO Q4H Y for PAIN, #12 TAB 0 Refills Prov: Jacque Merrill MD 03/27/17 Disposition: 01 DISCHARGE HOME Condition: Stable Jacque Merrill MD Mar 27, 2017 04:48
[2017-03-27 04:49] LABS: AUTOMATED NEUTROPHIL # 5.9 TH/MM3 (1.8-7.7); BASOPHIL # 0.1 TH/MM3 (0-0.2); BASOPHIL % 0.6 % (0.0-2.0); EOSINOPHIL # 0.2 TH/MM3 (0-0.4); EOSINOPHIL % 1.8 % (0.0-4.0); HEMATOCRIT 37.5 % (35.0-46.0); HEMO FLAGS DIFF FINAL; LYMPH % 21.8 % (9.0-44.0); LYMPHOCYTE # 1.9 TH/MM3 (1.0-4.8); MEAN CELL VOLUME 91.5 FL (80.0-100.0); MEAN CORPUSCULAR HEMOGLOBIN 30.8 PG (27.0-34.0); MEAN CORPUSCULAR HGB CONC 33.7 % (32.0-36.0); MONO % 7.1 % (0.0-8.0); NEUT % 68.7 % (16.0-70.0); PLATELET COUNT 259 TH/MM3 (150-450); RED CELL DISTRIBUTION WIDTH 12.6 % (11.6-17.2); WHITE BLOOD COUNT 8.6 TH/MM3 (4.0-11.0)
[2017-03-27] MEDS ORDERED: NORC5TAB PO (05:04)
[2017-03-27] MEDS ORDERED: PROM25TA10 PO (05:04)
[2017-03-27 05:06] LABS: ALT (GPT) 45 U/L (10-53); ANION GAP 10 MEQ/L (5-15); AST (GOT) 41 U/L (15-37); BICARBONATE 25.8 MEQ/L (21.0-32.0); BLOOD UREA NITROGEN 11 MG/DL (7-18); CHLORIDE 106 MEQ/L (98-107); GLOMERULAR FILTRATION RATE 95 ML/MIN (>89); POTASSIUM 3.5 MEQ/L (3.5-5.1); SODIUM (NA) 142 MEQ/L (136-145)
[2017-03-27 05:09] LABS: ALKALINE PHOSPHATASE 131 U/L (45-117); TOTAL BILIRUBIN ADULT 0.4 MG/DL (0.2-1.0)
== END 2017-03-27 06:20 | disposition home or self-care (01) ==
LOC: NEPC 04:15
DX: K82.9 Disease of gallbladder, unspecified (principal)
CPT/HCPCS: 80053; 83690; 84703; 85025; 96374; 96375; 99284; J2270; J2405; J7030

== ENCOUNTER 2017-04-07 07:02 | Emergency (ER) | payer MEDICAID ==
[~2017-04-07] VITALS: Ht 170.2 cm; Wt 86.0 kg
[~2017-04-07 07:02] MED LIST changes: -IBUP-232 PO; +NORC5TAB PO; -OXYC1TAB63 PO; -PREN1PAK9 PO; +PROM25TA10 PO
[2017-04-07 07:09] VITALS: BP 131/79; PULSE 81; RESP 18; TEMP 98.6; O2SAT 98
[2017-04-07 08:04] VITALS: RESP 16; O2SAT 98
[2017-04-07] MEDS: SODIUM CHLORIDE 0.9% FLUSH 10 ML FLUSH IV FLUSH PRN ×2 (08:06→08:31)
--- NOTE | 2017-04-07 08:14 | PD ---
HPI Chief Complaint: Abdominal Pain Time Seen by Provider: 08:09 Travel History International Travel<30 days: No Contact w/Intl Traveler<30days: No Traveled to known affect area: No History of Present Illness HPI 26-year-old female patient who is 6 weeks vaginal delivery, with history of intermittent biliary colic and gallbladder sludging, presents to the ER today for right upper quadrant abdominal pain that she currently measures and 8 out of 10, starting yesterday, nauseous, vomiting, diarrhea. She denies any fevers, urinary symptoms, or any other symptoms. She states is the same pain she has had intermittently during the as well. Modifying Factors: None Associated Signs & Symptoms: Nausea, vomiting, diarrhea, right upper quadrant abdominal pain Risk Factors: Biliary colic PFSH Past Medical History Medical History: Denies Significant Hx Diminished Hearing: No Tetanus Vaccination: < 5 Years Influenza Vaccination: No ?: Not LMP: 03/27/17 : 1 Para: 1 Past Surgical History Surgical History: No Previous Surgery Social History Alcohol Use: No Tobacco Use: No Substance Use: No Allergies-Medications (Allergen,Severity, Reaction): Coded Allergies: No Known Allergies (Verified Allergy, Unknown, 04/07/17) Reported Meds & Prescriptions Reported Meds & Active Scripts Active Phenergan (Promethazine HCl) 25 Mg Tablet 25 Mg PO Q6H PRN Review of Systems Except as stated in HPI: all other systems reviewed are Neg Physical Exam Narrative GENERAL: Well-developed young -Citizen Of [place] female patient currently in mild distress. Awake and oriented 3. SKIN: Focused skin assessment warm/dry. HEAD: Atraumatic. Normocephalic. EYES: Pupils equal and round. No scleral icterus. No injection or drainage. ENT: No nasal bleeding or discharge. Mucous membranes pink and moist. NECK: Trachea midline. No JVD. CARDIOVASCULAR: Regular rate and rhythm. No murmur appreciated. RESPIRATORY: No accessory muscle use. Clear to auscultation. Breath sounds equal bilaterally. GASTROINTESTINAL: Abdomen soft, right upper quadrant tenderness without guarding or rebound, nondistended. Positive Hughes sign. Hepatic and splenic margins not palpable. MUSCULOSKELETAL: No obvious deformities. No clubbing. No cyanosis. No edema. NEUROLOGICAL: Awake and alert. No obvious cranial nerve deficits. Motor grossly within normal limits. Normal speech. PSYCHIATRIC: Appropriate mood and affect; insight and judgment normal. Data Data Last Documented VS Vital Signs Date Time Temp Pulse Resp B/P (MAP) Pulse Ox O2 Delivery O2 Flow Rate FiO2 04/07/17 10:40 97.8 78 16 124/81 (95) 99 Room Air Orders Orders Complete Blood Count With Diff (04/07/17 08:01) Comprehensive Metabolic Panel (04/07/17 08:01) Lipase (04/07/17 08:01) Iv Access Insert/Monitor (04/07/17 08:01) Ecg Monitoring (04/07/17 08:01) Oximetry (04/07/17 08:01) Sodium Chloride 0.9% Flush (Ns Flush) (04/07/17 08:15) Us Abdomen Gallbladder (04/07/17 08:09) Sodium Chlor 0.9% 1000 Ml Inj (Ns 1000 M (04/07/17 08:15) Ondansetron Inj (Zofran Inj) (04/07/17 08:15) Hydromorphone Pf Inj (Dilaudid Pf Inj) (04/07/17 08:15) Mri Mrcp W/O Contrast (04/07/17 ) Ed Discharge Order (04/07/17 14:24) Labs Laboratory Tests Test 04/07/17 08:15 White Blood Count 8.9 TH/MM3 Red Blood Count 4.51 MIL/MM3 Hemoglobin 14.0 GM/DL Hematocrit 41.0 % Mean Corpuscular Volume 90.8 FL Mean Corpuscular Hemoglobin 31.1 PG Mean Corpuscular Hemoglobin Concent 34.2 % Red Cell Distribution Width 12.7 % Platelet Count 315 TH/MM3 Mean Platelet Volume 8.5 FL Neutrophils (%) (Auto) 82.5 % Lymphocytes (%) (Auto) 11.8 % Monocytes (%) (Auto) 4.5 % Eosinophils (%) (Auto) 0.8 % Basophils (%) (Auto) 0.4 % Neutrophils # (Auto) 7.4 TH/MM3 Lymphocytes # (Auto) 1.1 TH/MM3 Monocytes # (Auto) 0.4 TH/MM3 Eosinophils # (Auto) 0.1 TH/MM3 Basophils # (Auto) 0.0 TH/MM3 CBC Comment DIFF FINAL Differential Comment Blood Urea Nitrogen 13 MG/DL Creatinine 0.86 MG/DL Random Glucose 90 MG/DL Total Protein 8.4 GM/DL Albumin 4.3 GM/DL Calcium Level 8.9 MG/DL Alkaline Phosphatase 138 U/L Aspartate Amino Transf (AST/SGOT) 31 U/L Alanine Aminotransferase (ALT/SGPT) 45 U/L Total Bilirubin 1.3 MG/DL Sodium Level 140 MEQ/L Potassium Level 3.3 MEQ/L Chloride Level 105 MEQ/L Carbon Dioxide Level 25.5 MEQ/L Anion Gap 10 MEQ/L Estimat Glomerular Filtration Rate 97 ML/MIN Lipase 174 U/L MDM Medical Decision Making Medical Screen Exam Complete: Yes Emergency Medical Condition: Yes Medical Record Reviewed: Yes Interpretation(s) Laboratory Tests Test 04/07/17 08:15 Neutrophils (%) (Auto) 82.5 % (16.0-70.0) Total Protein 8.4 GM/DL (6.4-8.2) Alkaline Phosphatase 138 U/L (45-117) Total Bilirubin 1.3 MG/DL (0.2-1.0) Potassium Level 3.3 MEQ/L (3.5-5.1) Last 24 hours Impressions Gall Bladder Ultrasound 04/07/17 0809 Signed Impressions: Service Date/Time: Friday, April 07, 2017 08:22 - CONCLUSION: 1. Mildly dilated common bile duct from uncertain etiology. 2. Normal gallbladder without stones or sludge. J Carlos Staples MD Cholangiopancreatography MRI 04/07/17 0000 Signed Impressions: Service Date/Time: Friday, April 07, 2017 12:54 - CONCLUSION: The mid common bile duct is mildly dilated but tapers distally and is within normal limits. No distal obstructing stone or mass is present. J Carlos Staples MD Differential Diagnosis Right upper quadrant pains, nausea, vomiting, diarrhea: Biliary colic versus acute cholecystitis versus hepatitis versus dehydration versus metabolic issues Narrative Course Initial ultrasound did not show any signs of acute cholecystitis but did show a 9 mm dilated common bile duct. This is increased from 5 mm during the last visit a few months ago. Lab work shows mildly elevated bilirubin as well and mildly elevated alkaline phosphatase. Case was discussed with who recommends that we get an MRCP in the ER for further determination of treatment. MRCP was done and did not show any retained stones, a common bile duct that was mild dilated proximally and tapers down distally. At this point, case was then discussed with GI again and he states that the patient can be released, avoid possible triggers such as fatty foods, and follow-up with them in their office. Return for any worsening in symptoms as necessary. The plan has been discussed with her and she states understanding. Diagnosis Primary Impression: Abdominal pain Additional Impression: Elevated LFTs Referrals: Ky Jaquez MD Med/Other Pt SpecificInfo: Prescription(s) given Scripts Ondansetron Odt (Zofran Odt) 4 Mg Tab 4 MG SL Q6HR Y for Nausea/Vomiting, #7 TAB 0 Refills Prov: Jerry Greer MD 04/07/17 Disposition: 01 DISCHARGE HOME Condition: Stable Jerry Greer MD Apr 07, 2017 08:14
[2017-04-07] MEDS ORDERED: ONDANSETRON HCL 4 MG/2 ML VIAL IV PUSH ONE (08:15)
[2017-04-07] MEDS ORDERED: SODIUM CHLOR 0.9% 1000 ML INJ 1,000 ML IV ONE (08:15)
[2017-04-07] MEDS ORDERED: HYDROmorphone HCL PF 0.5 MG/0.5 ML SYRINGE IV PUSH ONE (08:15)
[2017-04-07 08:47] LABS: AUTOMATED NEUTROPHIL # 7.4 TH/MM3 (1.8-7.7); BASOPHIL % 0.4 % (0.0-2.0); EOSINOPHIL # 0.1 TH/MM3 (0-0.4); EOSINOPHIL % 0.8 % (0.0-4.0); HEMO FLAGS DIFF FINAL; LYMPH % 11.8 % (9.0-44.0); LYMPHOCYTE # 1.1 TH/MM3 (1.0-4.8); MEAN CELL VOLUME 90.8 FL (80.0-100.0); MEAN CORPUSCULAR HEMOGLOBIN 31.1 PG (27.0-34.0); MEAN CORPUSCULAR HGB CONC 34.2 % (32.0-36.0); MONO % 4.5 % (0.0-8.0); NEUT % 82.5 % (16.0-70.0); PLATELET COUNT 315 TH/MM3 (150-450); RED BLOOD COUNT 4.51 MIL/MM3 (4.00-5.30); RED CELL DISTRIBUTION WIDTH 12.7 % (11.6-17.2); WHITE BLOOD COUNT 8.9 TH/MM3 (4.0-11.0)
[2017-04-07 09:01] LABS: ANION GAP 10 MEQ/L (5-15); AST (GOT) 31 U/L (15-37); BICARBONATE 25.5 MEQ/L (21.0-32.0); BLOOD UREA NITROGEN 13 MG/DL (7-18); CHLORIDE 105 MEQ/L (98-107); GLOMERULAR FILTRATION RATE 97 ML/MIN (>89); POTASSIUM 3.3 MEQ/L (3.5-5.1); SODIUM (NA) 140 MEQ/L (136-145)
[2017-04-07 09:02] LABS: ALT (GPT) 45 U/L (10-53)
[2017-04-07 09:04] LABS: ALKALINE PHOSPHATASE 138 U/L (45-117); TOTAL BILIRUBIN ADULT 1.3 MG/DL (0.2-1.0)
--- NOTE | 2017-04-07 09:08 | RADRPT ---
EXAM DATE/TIME: 04/07/2017 08:22 [facility] COMPARISON: US ABDOMEN - COMPLETE, January 27, 2017, 8:20. INDICATIONS : Right upper quadrant pain. MEDICAL HISTORY : History of intermittent biliary colic and gallbladder sludging. SURGICAL HISTORY : None. ENCOUNTER: Subsequent ACUITY: 2 days PAIN SCORE: 8/10 LOCATION: Right upper quadrant MEASUREMENTS: LIVER: 15.1 cm length COMMON DUCT: 9 mm RIGHT KIDNEY: 9.9 x 4.5 x 4.2 cm FINDINGS: LIVER: Normal echotexture without focal lesion or ductal dilatation. COMMON DUCT: No intraluminal mass or stone visualized. GALLBLADDER: Contains no stones, demonstrates no wall thickening or pericholecystic fluid. Sonographic Hughes's s ign is negative. PANCREAS: The visualized portions are within normal limits. RIGHT KIDNEY: No evidence of hydronephrosis, stone, or mass. CONCLUSION: 1. Mildly dilated common bile duct from uncertain etiology. 2. Normal gallbladder without stones or sludge. J Carlos Staples MD on April 07, 2017 at 9:04 Board Certified Radiologist. This report was verified electronically.
[2017-04-07 10:40] VITALS: BP 124/81; PULSE 78; RESP 16; TEMP 97.8; O2SAT 99
--- NOTE | 2017-04-07 14:05 | RADRPT ---
EXAM DATE/TIME: 04/07/2017 12:54 [facility] COMPARISON: US ABDOMEN - GALLBLADDER, April 07, 2017, 8:22. INDICATIONS : Abdominal pain. MEDICAL HISTORY : None. SURGICAL HISTORY : None. ENCOUNTER: Initial ACUITY: 2 day PAIN SCORE: 3/10 LOCATION: abdomen TECHNIQUE: Multiplanar, multisequence magnetic resonance imaging of the abdomen was performed. High-resolution 3D dataset was utilized to reconstruct maximum-intensity projection (MIP) images. FINDINGS: INTRAHEPATIC BILE DUCTS: Within normal limits. No significant anatomical variant is present. EXTRAHEPATIC BILE DUCTS: The common bile duct measures 7 mm in its midportion and tapers distally to 4 mm. The common hepatic duct measures 8 mm. No stone or filling defect is identified. GALLBLADDER: No stones, wall thickening, or pericholecystic fluid. LIVER: Normal size and signal intensity. No concerning liver lesion is identified on this non-contrast exam. PANCREAS: The main pancreatic duct is normal in size. There is no significant anatomical variant. Signal inte nsity is within normal limits. No mass is visualized on this non-contrast exam. OTHER: The remaining visualized structures demonstrate no acute abnormality on this non-contrast exam. CONCLUSION: The mid common bile duct is mildly dilated but tapers distally and is within normal limits. No distal obstructing stone or mass is present. J Carlos Staples MD on April 07, 2017 at 13:58 Board Certified Radiologist. This report was verified electronically.
[2017-04-07] MEDS ORDERED: ZOFR4TAB3 SL (14:30)
== END 2017-04-07 14:42 | disposition home or self-care (01) ==
LOC: NEPE 07:02
DX: R10.11 Right upper quadrant pain (principal); R79.89 Other specified abnormal findings of blood chemistry
CPT/HCPCS: 74181; 76377; 76705; 80053; 83690; 85025; 96361; 96374; 96375; 99285; J1170; J2405; J7030

== ENCOUNTER 2017-04-07 23:31 | Observation (INO) | payer MEDICAID ==
[~2017-04-07] VITALS: Ht 170.2 cm; Wt 82.0 kg
[~2017-04-07 23:31] MED LIST changes: +ZOFR4TAB3 SL
[2017-04-07 23:35] VITALS: BP 133/76; PULSE 70; RESP 18; TEMP 99; O2SAT 100
--- NOTE | 2017-04-08 00:02 | PD ---
HPI Chief Complaint: Abdominal Pain Time Seen by Provider: 23:42 Travel History International Travel<30 days: No Contact w/Intl Traveler<30days: No Traveled to known affect area: No History of Present Illness HPI The patient is a 26 year old female who presents to the [facility] emergency department with a history of abdominal pain and right sided flank pain that began two weeks ago. It is coming and going. She was seen earlier today regarding the same pain. The patient was noted at that time to have a dilated common bile duct on ultrasound. An MRCP was ordered which was unremarkable. The patient was instructed to follow-up with gastroenterology. She reports that the pain had improved prior to discharge to it recurred again this evening. She last ate at 7PM. She ate grilled chicken, salad, and corn. She has had nausea without vomiting. She has had Diarrhea x6. The stool is yellow to green in color. She denies having any blood in her stool or black or tarry stools. She denies having any mucus in her stool. The diarrhea started two days ago. She is breast and bottle feeding. She delivered a baby on 02/18 vaginally. She had no complications during the delivery. She did have problems with her gallbladder reportedly during the . The patient was noted during her to have gallbladder sludge and small gallstones, however on repeat ultrasound done earlier today all of this had resolved. The patient denies having any vaginal discharge. On review systems she denies having any known fevers, cough, congestion, neck pain, chest pain, shortness of breath, urinary symptoms, or neurologic symptoms. [facility] Past Medical History Narrative Medical The patient's past medical history is reportedly none. Diminished Hearing: No Gastrointestinal Disorders: Yes (HX OF GALLSTONES ) Tetanus Vaccination: Never Vaccinated ?: Unknown : 1 Para: 1 Past Surgical History Surgical History: No Previous Surgery Social History Alcohol Use: No Tobacco Use: No Substance Use: No Allergies-Medications (Allergen,Severity, Reaction): Coded Allergies: No Known Allergies (Verified Allergy, Unknown, 04/07/17) Reported Meds & Prescriptions Reported Meds & Active Scripts Active No Active Prescriptions or Reported Medications Review of Systems Except as stated in HPI: all other systems reviewed are Neg General / Constitutional: No: Fever Eyes: No: Visual changes HENT: No: Headaches Cardiovascular: No: Chest Pain or Discomfort Respiratory: No: Shortness of Breath Gastrointestinal: Positive: Nausea, Diarrhea, Abdominal Pain, Changes in Bowel Habits, Loss of Appetite, No: Vomiting, Hematemesis, Hematochezia, Indigestion Genitourinary: No: Dysuria Musculoskeletal: No: Pain Skin: No Rash Neurologic: No: Weakness Psychiatric: No: Depression Endocrine: No: Polydipsia Hematologic/Lymphatic: No: Easy Bruising Physical Exam Narrative General: The patient is a well-developed well-nourished female, uncomfortable appearing on arrival, moaning and intermittently writhing around the bed, only laying on her left side. Head and Neck exam: Head is normocephalic atraumatic. Eyes: EOMI, pupils are equal round and reactive to light. Nose: Midline septum with pink mucous membranes Mouth: Dentition unremarkable. Moist mucus membranes. Posterior oropharynx is not erythematous. No tonsillar hypertrophy. Uvula midline. Airway patent. Neck: No palpable lymphadenopathy. No nuchal rigidity. No thyromegaly. Cardiovascular: Regular rate and rhythm without murmurs, gallops, or rubs. Lungs: Clear to auscultation bilaterally. No wheezes, rhonchi, or rales. Abdomen: Soft, with tenderness on palpation in the right upper and right lower quadrant of the abdomen as well as the suprapubic area, no other tenderness on palpation of the left upper quadrant of the abdomen or left lower quadrant. No guarding, rebound, or rigidity. Normal bowel sounds are audible. Negative Hughes's sign. The patient has tenderness on palpation over McBurney's point. Extremities: No clubbing, cyanosis, or edema. 2+ pulses in all 4 extremities. No calf tenderness on palpation. Back: No spinous process tenderness to palpation. Right-sided CVA tenderness on palpation. Neurologic Exam: Grossly nonfocal. Skin Exam: No rash noted. Intact skin that is warm and dry. Data Data Last Documented VS Vital Signs Date Time Temp Pulse Resp B/P (MAP) Pulse Ox O2 Delivery O2 Flow Rate FiO2 04/07/17 23:35 99.0 70 18 133/76 (95) 100 Orders Orders Complete Blood Count With Diff (04/07/17 23:53) Comprehensive Metabolic Panel (04/07/17 23:53) C-Reactive Protein (Crp) (04/07/17 23:53) Lipase (04/07/17 23:53) Iv Access Insert/Monitor (04/07/17 23:53) Ecg Monitoring (04/07/17 23:53) Oximetry (04/07/17 23:53) Ed Urine Pregnancytest Poc (04/07/17 23:53) Sodium Chlor 0.9% 1000 Ml Inj (Ns 1000 M (04/08/17 00:15) Ondansetron Inj (Zofran Inj) (04/08/17 00:15) Morphine Inj (Morphine Inj) (04/08/17 00:15) Ct Abd/Pel W Iv Contrast(Rout) (04/08/17 00:13) Potassium Chloride Eff (K-Lyte Cl Eff) (04/08/17 01:15) Iohexol 350 Inj (Omnipaque 350 Inj) (04/08/17 01:25) Ketorolac Inj (Toradol Inj) (04/08/17 02:15) Pantoprazole Inj (Protonix Inj) (04/08/17 02:15) Admit Order (Ed Use Only) (04/08/17 02:22) Labs Laboratory Tests Test 04/07/17 23:50 White Blood Count 8.0 TH/MM3 Red Blood Count 4.30 MIL/MM3 Hemoglobin 13.2 GM/DL Hematocrit 39.1 % Mean Corpuscular Volume 90.8 FL Mean Corpuscular Hemoglobin 30.6 PG Mean Corpuscular Hemoglobin Concent 33.7 % Red Cell Distribution Width 12.8 % Platelet Count 286 TH/MM3 Mean Platelet Volume 8.7 FL Neutrophils (%) (Auto) 75.2 % Lymphocytes (%) (Auto) 15.6 % Monocytes (%) (Auto) 6.7 % Eosinophils (%) (Auto) 1.8 % Basophils (%) (Auto) 0.7 % Neutrophils # (Auto) 6.1 TH/MM3 Lymphocytes # (Auto) 1.3 TH/MM3 Monocytes # (Auto) 0.5 TH/MM3 Eosinophils # (Auto) 0.1 TH/MM3 Basophils # (Auto) 0.1 TH/MM3 CBC Comment DIFF FINAL Differential Comment Blood Urea Nitrogen 12 MG/DL Creatinine 0.90 MG/DL Random Glucose 97 MG/DL Total Protein 7.7 GM/DL Albumin 4.1 GM/DL Calcium Level 8.9 MG/DL Alkaline Phosphatase 129 U/L Aspartate Amino Transf (AST/SGOT) 30 U/L Alanine Aminotransferase (ALT/SGPT) 49 U/L Total Bilirubin 1.6 MG/DL Sodium Level 142 MEQ/L Potassium Level 3.3 MEQ/L Chloride Level 106 MEQ/L Carbon Dioxide Level 26.3 MEQ/L Anion Gap 10 MEQ/L Estimat Glomerular Filtration Rate 92 ML/MIN C-Reactive Protein 1.70 MG/DL Lipase 188 U/L [facility] Medical Decision Making Medical Screen Exam Complete: Yes Emergency Medical Condition: Yes Medical Record Reviewed: Yes Interpretation(s) Last Impressions Abdomen/Pelvis CT 04/08/17 0013 Signed Impressions: Service Date/Time: Saturday, April 08, 2017 01:20 - CONCLUSION: Unremarkable study. The appendix is grossly unremarkable. There are 2 calcifications in the right hemipelvis and I suspect they're both phleboliths. No evidence of hydronephrosis or hydroureter Gume Patel MD Differential Diagnosis Appendicitis, versus Biliary colic with passed stone, versus pancreatitis, versus pyelonephritis, versus sphincter of Oddi dysfunction, versus colitis, versus diverticulitis, versus peptic ulcer disease Narrative Course During the course of the patients emergency department visit, the patients history, examination, and differential diagnosis were reviewed with the patient. The patient was placed on a director cardiac with oximetry and frequent blood pressure monitoring. The patient had IV access obtained and blood work sent for analysis. The patient was initially provided morphine 2 mg IV, Zofran 4 mg IV, normal saline 1 L IV fluid bolus. The patients laboratory studies were reviewed and remarkable for a white count of 8, hemoglobin 13.2, platelets 286 with 75.2 neutrophils, CMP is remarkable for potassium of 3.3 which was supplemented orally, total bilirubin 1.6, alkaline phosphatase 129, C-reactive protein 1.70, lipase 188 Radiology studies were reviewed and remarkable for a CT scan of the abdomen and pelvis that shows no evidence of appendicitis. 2 calcifications in the right hemipelvis that the reading radiologist suspects are both phleboliths. No evidence of hydronephrosis or hydroureter. In spite of administration of multiple doses of pain medication the patient continues to be painful and experiencing abdominal pain on palpation. The patient will be admitted to the hospital for intractable pain, consultation with GI. The patients results were discussed with the patient, including the plan of care. I explained that further testing and/ or monitoring is indicated based on the patients history, examination, and/ or laboratory findings. Therefore, I recommended admission for additional evaluation. The patient expressed understanding and was agreeable with this plan. The patient was admitted to the hospital in stable condition and sent to a bed under the care of [facility] service. Physician Communication Physician Communication The patient's case including history, pertinent physical examination findings, and laboratory studies were discussed with Dr. Segura. It was agreed that the patient would be admitted to the [facility] service. Diagnosis Primary Impression: Abdominal pain Qualified Codes: R10.9 - Unspecified abdominal pain Admitting Information Admitting Physician Requests: Observation Scripts No Active Prescriptions or Reported Meds Abi Bhat MD Apr 08, 2017 00:02
[2017-04-08] MEDS ORDERED: SODIUM CHLOR 0.9% 1000 ML INJ 1,000 ML IV ONE (00:15)
[2017-04-08] MEDS ORDERED: ONDANSETRON HCL 4 MG/2 ML VIAL IV ONE (00:15)
[2017-04-08] MEDS ORDERED: MORPHINE SULFATE 2 MG/ML INJ IV PUSH ONE (00:15)
[2017-04-08 00:20] LABS: AUTOMATED NEUTROPHIL # 6.1 TH/MM3 (1.8-7.7); BASOPHIL # 0.1 TH/MM3 (0-0.2); BASOPHIL % 0.7 % (0.0-2.0); EOSINOPHIL # 0.1 TH/MM3 (0-0.4); EOSINOPHIL % 1.8 % (0.0-4.0); HEMATOCRIT 39.1 % (35.0-46.0); HEMO FLAGS DIFF FINAL; LYMPH % 15.6 % (9.0-44.0); LYMPHOCYTE # 1.3 TH/MM3 (1.0-4.8); MEAN CELL VOLUME 90.8 FL (80.0-100.0); MEAN CORPUSCULAR HEMOGLOBIN 30.6 PG (27.0-34.0); MEAN CORPUSCULAR HGB CONC 33.7 % (32.0-36.0); MONO % 6.7 % (0.0-8.0); NEUT % 75.2 % (16.0-70.0); PLATELET COUNT 286 TH/MM3 (150-450); RED CELL DISTRIBUTION WIDTH 12.8 % (11.6-17.2)
[2017-04-08 00:35] LABS: ALT (GPT) 49 U/L (10-53); ANION GAP 10 MEQ/L (5-15); AST (GOT) 30 U/L (15-37); BICARBONATE 26.3 MEQ/L (21.0-32.0); BLOOD UREA NITROGEN 12 MG/DL (7-18); CHLORIDE 106 MEQ/L (98-107); GLOMERULAR FILTRATION RATE 92 ML/MIN (>89); POTASSIUM 3.3 MEQ/L (3.5-5.1); SODIUM (NA) 142 MEQ/L (136-145)
[2017-04-08 00:37] LABS: ALKALINE PHOSPHATASE 129 U/L (45-117); TOTAL BILIRUBIN ADULT 1.6 MG/DL (0.2-1.0)
[2017-04-08] MEDS ORDERED: POTASSIUM CHLORIDE 25 MEQ EFFERVESCENT TAB PO ONE (01:15)
[2017-04-08] MEDS ORDERED: IOHEXOL 350 MG/ML 10 ML VIAL (for RAD DIAG) IVCONTRAST ONE (01:25)
--- NOTE | 2017-04-08 01:36 | RADRPT ---
EXAM DATE/TIME: 04/08/2017 01:20 [facility] COMPARISON: MRCP W/O CONTRAST, April 07, 2017, 12:54. INDICATIONS : Right sided abdominal pain. History of gallstones. IV CONTRAST: 90 cc Omnipaque 350 (iohexol) IV ORAL CONTRAST: No oral contrast ingested. RADIATION DOSE: 9.66 CTDIvol (mGy) MEDICAL HISTORY : Gallstones. SURGICAL HISTORY : None. ENCOUNTER: Initial ACUITY: 1 week PAIN SCALE: 10/10 LOCATION: Left abdomen TECHNIQUE: Volumetric scanning of the abdomen and pelvis was performed. Using automated exposure control and ad justment of the mA and/or kV according to patient size, radiation dose was kept as low as reasonably achievable to obtain optimal diagnostic quality images. DICOM format image data is available electro nically for review and comparison. FINDINGS: LOWER LUNGS: The visualized lower lungs are clear. LIVER: Homogeneous density without lesion. There is no dilation of the biliary tree. No calcified gallston es. The gallbladder is well distended SPLEEN: Normal size without lesion. PANCREAS: Within normal limits. KIDNEYS: Normal in size and shape. There is no mass, stone or hydronephrosis. ADRENAL GLANDS: Within normal limits. VASCULAR: There is no aortic aneurysm. BOWEL/MESENTERY: The stomach, small bowel, and colon demonstrate no acute abnormality. There is no free intraperitone al air or fluid. The appendix is 6 mm across. ABDOMINAL WALL: Within normal limits. RETROPERITONEUM: There is no lymphadenopathy. BLADDER: No wall thickening or mass. 2 calcifications posterior to the bladder and the right of midline REPRODUCTIVE: Within normal limits. INGUINAL: There is no lymphadenopathy or hernia. MUSCULOSKELETAL: Within normal limits for patient age. CONCLUSION: Unremarkable study. The appendix is grossly unremarkable. There are 2 calcifications in the right hem ipelvis and I suspect they're both phleboliths. No evidence of hydronephrosis or hydroureter Gume Patel MD on April 08, 2017 at 1:32 Board Certified Radiologist. This report was verified electronically.
[2017-04-08] MEDS ORDERED: KETOROLAC TROMETHAMINE 30 MG/ML (IVP) VIAL IV PUSH ONE (02:15)
[2017-04-08] MEDS ORDERED: PANTOPRAZOLE SODIUM 40 MG VIAL IV PUSH ONE (02:15)
[2017-04-08] MEDS ORDERED: SODIUM CHLOR 0.9% 1000 ML INJ 1,000 ML IV SCH (02:36)
[2017-04-08] MEDS ORDERED: MORPHINE SULFATE 2 MG/ML INJ IV PUSH PRN ×2 (02:45→08:30)
[2017-04-08] MEDS ORDERED: NALOXONE HCL 0.4 MG/ML AMP IV PUSH PRN ×2 (02:45→08:30)
[2017-04-08] MEDS ORDERED: SODIUM CHLORIDE 0.9% FLUSH 10 ML FLUSH IV FLUSH PRN (02:45)
[2017-04-08 04:23] VITALS: BP 115/60; PULSE 60; RESP 12; TEMP 98.9; O2SAT 99
[2017-04-08 07:00] VITALS: BP 105/61; PULSE 69; RESP 16; TEMP 98.1; O2SAT 100
[2017-04-08] MEDS: SODIUM CHLORIDE 0.9% FLUSH 10 ML FLUSH IV FLUSH SCH ×2 (08:31→20:27)
[2017-04-08] MEDS: NS + KCL 20 MEQ INJ 1,000 ML IV SCH ×2 (09:03→17:53)
[2017-04-08 09:30] VITALS: BP 112/67; PULSE 67; RESP 16; TEMP 97.8; O2SAT 98
[2017-04-08 11:06] VITALS: BP 136/81; PULSE 64; RESP 16; TEMP 97.8; O2SAT 100
[2017-04-08] MEDS: MORPHINE SULFATE 2 MG/ML INJ IV PUSH PRN ×2 (11:06→17:59)
[2017-04-08 12:00] LABS: BLOOD, URINE NEG (NEG); COMMENT (UR) CULTURE INDICATED; CULTURE IF INDICATED CULTURE INDICATED; GLUCOSE,URINE NEG (NEG); KETONE, URINE NEG (NEG); MUCUS URINE MOD /lpf (OCC); NITRITE,URINE NEG (NEG); SQUAMOUS EPITHELIAL CELL URINE 15 /hpf (0-5); URINE COLOR DARK-YELLOW (YELLW/STRAW)
[2017-04-08 12:20] VITALS: BP 128/83; TEMP 98
--- NOTE | 2017-04-08 15:12 | HHI.HP ---
[facility] Service [facility] Primary Care Physician No Primary Care Physician Admission Diagnosis Intractable abdominal pain, elevated lfts Diagnoses: (1) Abdominal pain Diagnosis: Principal (2) Diarrhea Diagnosis: Principal (3) Right-sided back pain Diagnosis: Principal Travel History International Travel<30 Days: No Contact w/Intl Traveler <30 Da: No Traveled to Known Affected Are: No History of Present Illness Written by Romario Braxton, acting as scribe for Dr. Saldaña on 04/08/17 at 14:35. 26 year old female who presented to the ED for second time this week with complaints of abdominal pain, back pain, nausea, and diarrhea. Patient's reports no past medical history, recently had vaginal delivery on 02/18. Patient was recently seen in ED on 04/07 and had gallbladder US which showed mildly dilated common bile duct from uncertain etiology, gallbladder without stones or sludges. Patient also underwent MRCP which showed no retention or stones, did demonstrate common bile duct that was mildly dilated proximally and tapered down distally. She was advised to avoid trigger foods that are high in fat and return to ED if symptoms worsen. Patient reports that she went home and and was taking her Zofran for nausea. Pain however became worse last night on her left side of her abdomen. She also developed diarrhea which was yellow and green in color, last BM was last night. She continues to have right sided back pain and stats this has been there for the past two weeks. Denies any fever, chills, nausea, no vomiting, no dysuria, or trouble with urination. Patient reports that she is bottle and breast feeding, but is aware that she is to pump and dump breast milk while in the hospital and receiving medications that could pass through breast milk. Review of Systems Constitutional: DENIES: Fatigue, Fever, Weight gain, Chills, Dizziness Gastrointestinal: COMPLAINS OF: Abdominal pain, Diarrhea, Nausea, DENIES: Vomiting Except as stated in HPI: all other systems reviewed are Neg Past Family Social History Past Medical History History of dilated common bile duct Past Surgical History Denies past surgical history Reported Medications Reported Meds & Active Scripts Active No Active Prescriptions or Reported Medications Allergies: Coded Allergies: No Known Allergies (Verified Allergy, Unknown, 04/07/17) Active Ordered Medications Family History Denies any family history Social History Once child who she recently gave to Tobacco use: denies Alcohol: denies Illicit drug use: denies Physical Exam Vital Signs Vital Signs Date Time Temp Pulse Resp B/P (MAP) Pulse Ox O2 Delivery O2 Flow Rate FiO2 04/08/17 12:20 98.0 74 16 128/83 (98) 99 04/08/17 11:11 17 04/08/17 11:06 97.8 64 16 136/81 (99) 100 Room Air 04/08/17 09:30 97.8 67 16 112/67 (82) 98 Room Air 04/08/17 07:00 98.1 69 16 105/61 (76) 100 Room Air 04/08/17 07:00 17 04/08/17 07:00 17 04/08/17 07:00 16 04/08/17 04:23 98.9 60 12 115/60 (78) 99 Room Air 04/07/17 23:35 99.0 70 18 133/76 (95) 100 Physical Exam GENERAL: This is a well-nourished, well-developed patient, in no apparent distress. SKIN: No rashes, ecchymoses or lesions. Cool and dry. HEAD: Atraumatic. Normocephalic. No temporal or scalp tenderness. EYES: Pupils equal round and reactive. Extraocular motions intact. No scleral icterus. No injection or drainage. ENT: Nose without bleeding, purulent drainage or septal hematoma. Throat without erythema, tonsillar hypertrophy or exudate. Uvula midline. Airway patent. NECK: Trachea midline. No JVD or lymphadenopathy. Supple, nontender, no meningeal signs. CARDIOVASCULAR: Regular rate and rhythm without murmurs, gallops, or rubs. RESPIRATORY: Clear to auscultation. Breath sounds equal bilaterally. No wheezes , rales, or rhonchi. GASTROINTESTINAL: Abdomen soft, right sided tenderness elicited with palpation, nondistended. No hepato-splenomegaly, or palpable masses. No guarding. MUSCULOSKELETAL: Extremities without clubbing, cyanosis, or edema. No joint tenderness, effusion, or edema noted. No calf tenderness. Negative Homans sign bilaterally. NEUROLOGICAL: Awake and alert. Cranial nerves II through XII intact. Motor and sensory grossly within normal limits. Five out of 5 muscle strength in all muscle groups. Normal speech. Laboratory Laboratory Tests Test 04/07/17 23:50 04/08/17 11:14 White Blood Count 8.0 Red Blood Count 4.30 Hemoglobin 13.2 Hematocrit 39.1 Mean Corpuscular Volume 90.8 Mean Corpuscular Hemoglobin 30.6 Mean Corpuscular Hemoglobin Concent 33.7 Red Cell Distribution Width 12.8 Platelet Count 286 Mean Platelet Volume 8.7 Neutrophils (%) (Auto) 75.2 Lymphocytes (%) (Auto) 15.6 Monocytes (%) (Auto) 6.7 Eosinophils (%) (Auto) 1.8 Basophils (%) (Auto) 0.7 Neutrophils # (Auto) 6.1 Lymphocytes # (Auto) 1.3 Monocytes # (Auto) 0.5 Eosinophils # (Auto) 0.1 Basophils # (Auto) 0.1 CBC Comment DIFF FINAL Differential Comment Blood Urea Nitrogen 12 Creatinine 0.90 Random Glucose 97 Total Protein 7.7 Albumin 4.1 Calcium Level 8.9 Alkaline Phosphatase 129 Aspartate Amino Transf (AST/SGOT) 30 Alanine Aminotransferase (ALT/SGPT) 49 Total Bilirubin 1.6 Sodium Level 142 Potassium Level 3.3 Chloride Level 106 Carbon Dioxide Level 26.3 Anion Gap 10 Estimat Glomerular Filtration Rate 92 Magnesium Level 2.1 C-Reactive Protein 1.70 Lipase 188 Urine Color DARK-YELLOW Urine Turbidity HAZY Urine pH 6.0 Urine Specific [place] GREATER THAN 1.050 Urine Protein TRACE Urine Glucose (UA) NEG Urine Ketones NEG Urine Occult Blood NEG Urine Nitrite NEG Urine Bilirubin SMALL Urine Urobilinogen 2.0 Urine Leukocyte Esterase MOD Urine RBC 1 Urine WBC 9 Urine Squamous Epithelial Cells 15 Urine Mucus MOD Microscopic Urinalysis Comment CULTURE INDICATED Date/Time Source Procedure Growth Status 04/08/17 11:14 Urine Clean Catch Urine Culture Pending Received Result Diagram: 04/07/17 2350 04/07/17 2350 Imaging Last Impressions Abdomen/Pelvis CT 04/08/17 0013 Signed Impressions: Service Date/Time: Saturday, April 08, 2017 01:20 - CONCLUSION: Unremarkable study. The appendix is grossly unremarkable. There are 2 calcifications in the right hemipelvis and I suspect they're both phleboliths. No evidence of hydronephrosis or hydroureter MD Toney Simoni VTE Risk Assessment Caprini VTE Risk Assessment: No/Low Risk (score <= 1) Caprini Risk Assessment Model Point Value = 1 Point Value = 2 Point Value = 3 Point Value = 5 Age 41-60 Minor surgery BMI > 25 kg/m2 Swollen legs Varicose veins or History of unexplained or recurrent spontaneous Oral contraceptives or hormone replacement Sepsis (< 1 month) Serious lung disease, including pneumonia (< 1 month) Abnormal pulmonary function Acute myocardial infarction Congestive heart failure (< 1 month) History of inflammatory bowel disease Medical patient at bed rest Age 61-74 Arthroscopic surgery Major open surgery (> 45 min) Laparoscopic surgery (> 45 min) Malignancy Confined to bed (> 72 hours) Immobilizing plaster cast Central venous access Age >= 75 History of VTE Family history of VTE Factor V Leiden Prothrombin [id number] Lupus anticoagulant Anticardiolipin antibodies Elevated serum homocysteine Heparin-induced thrombocytopenia Other congenital or acquired thrombophilia Stroke (< 1 month) Elective arthroplasty Hip, pelvis, or leg fracture Acute spinal cord injury (< 1 month) Prophylaxis Regimen Total Risk Factor Score Risk Level Prophylaxis Regimen 0-1 Low Early ambulation 2 Moderate Order ONE of the following: *Sequential Compression Device (SCD) *Heparin 5000 units SQ BID 3-4 Higher Order ONE of the following medications: *Heparin 5000 units SQ TID *Enoxaparin/Lovenox 40 mg SQ daily (WT < 150 kg, CrCl > 30 mL/min) *Enoxaparin/Lovenox 30 mg SQ daily (WT < 150 kg, CrCl > 10-29 mL/min) *Enoxaparin/Lovenox 30 mg SQ BID (WT < 150 kg, CrCl > 30 mL/min) AND/OR *Sequential Compression Device (SCD) 5 or more Highest Order ONE of the following medications: *Heparin 5000 units SQ TID (Preferred with Epidurals) *Enoxaparin/Lovenox 40 mg SQ daily (WT < 150 kg, CrCl > 30 mL/min) *Enoxaparin/Lovenox 30 mg SQ daily (WT < 150 kg, CrCl > 10-29 mL/min) *Enoxaparin/Lovenox 30 mg SQ BID (WT < 150 kg, CrCl > 30 mL/min) AND *Sequential Compression Device (SCD) Assessment and Plan Problem List: (1) Right-sided back pain ICD Code: M54.9 - Dorsalgia, unspecified (2) Diarrhea ICD Code: R19.7 - Diarrhea, unspecified (3) Abdominal pain ICD Code: R10.9 - Unspecified abdominal pain Assessment and Plan 26 year old female who presented to the ED for second time this week with complaints of abdominal pain, back pain, nausea, and diarrhea. Right sided abdominal pain, acute - Recently seen in ED for same issue on 04/07, cleared for DC however continues to have abdominal pain, nausea, and now diarrhea for 2 days. - CT done this admission reviewed by myself showing grossly normal appendix, 2 calcifications in the right hemipelvis which radiologist though were suspicious for phleboliths, no hydronephrosis or hydroureter. - Gallbladder US dine on 04/07 personally reviewed showing mildly dilated common bile duct with uncertain etiology, gallbladder without stones or sludge. - MRCP done 04/07 which showed no retention or stones, did demonstrate common bile duct that was mildly dilated proximally and tapered down distally. - Will keep NPO for now as she is still having abdominal pain and tenderness. - GI consult in place, appreciate recommendations. - Will check stool for C-diff - Order placed for HIDA scan to check gallbladder function. - Pain control with the use of Morphine IV - On PPI - IVF NS with 20meq KCL as patient will remain NPO Nausea, acute - Suspect this is secondary to abdominal pain or possible gastroenteritis. - Zofran IV for nausea Right sided back pain, acute - Ongoing for two weeks, suspect this pain could be related to her abdominal pain - GI workup in progress - UA done showing moderate leukocyte esterase, culture in progress. - Will hold off on antibiotics, patient denies dysuria or trouble with urination. VTE - Early ambulation and SCD's Problem Qualifiers (1) Right-sided back pain: Qualified Codes: M54.5 - Low back pain Romario Braxton Apr 08, 2017 15:12
--- NOTE | 2017-04-08 16:29 | PD.CONS ---
HPI History of Present Illness This is a 26 year old female who gave in January, presented with RUQ pain that has been worsening over the last 4-5 months. THe pain is intermittent. IN the beginning it was helped by low fat diet but the last few weeks the pain has been worsening and exacerbated by any intake. SHe has had n/ v, some diarrhea in the last 2d. Denies black tarry stool, blood in stool, blood in emesis. Never had EGD or colonoscopy. A US from 01/2017 showed sludge and tiny stones but US 04/07 did not show sludge or stones. MRCP 04/07 showed mild CBD dilatation, no stone or obstruction. CT unremarkable. (Lea Borges) PFSH Past Medical History History of dilated common bile duct Past Surgical History Denies past surgical history (Lea Borges) Coded Allergies: No Known Allergies (Verified Allergy, Unknown, 04/07/17) Family History Denies any family history Social History Once child who she recently gave to Tobacco use: denies Alcohol: denies Illicit drug use: denies (Lea Borges) Review of Systems Constitutional: DENIES: Fever Eyes: DENIES: Blurred vision Ears, nose, mouth, throat: DENIES: Hearing loss Respiratory: DENIES: Wheezing Cardiovascular: DENIES: Chest pain Gastrointestinal: COMPLAINS OF: Abdominal pain, Diarrhea, Nausea, Vomiting, DENIES: Black stools, Bloody stools, Constipation, Hematemesis Genitourinary: DENIES: Hematuria Musculoskeletal: DENIES: Joint Swelling Integumentary: DENIES: Pruritus Hematologic/lymphatic: DENIES: Bruising Immunologic/allergic: DENIES: Eczema Neurologic: DENIES: Abnormal gait Psychiatric: DENIES: Confusion (Lea Borges) GI Exam Vitals I&O Vital Signs Date Time Temp Pulse Resp B/P (MAP) Pulse Ox O2 Delivery O2 Flow Rate FiO2 04/08/17 12:20 98.0 74 16 128/83 (98) 99 04/08/17 11:11 17 04/08/17 11:06 97.8 64 16 136/81 (99) 100 Room Air 04/08/17 09:30 97.8 67 16 112/67 (82) 98 Room Air 04/08/17 07:00 98.1 69 16 105/61 (76) 100 Room Air 04/08/17 07:00 17 04/08/17 07:00 17 04/08/17 07:00 16 04/08/17 04:23 98.9 60 12 115/60 (78) 99 Room Air 04/07/17 23:35 99.0 70 18 133/76 (95) 100 I/O 04/07/17 04/07/17 04/07/17 04/08/17 04/08/17 04/08/17 07:00 15:00 23:00 07:00 15:00 23:00 Intake Total 1000 ml 1604 ml Balance 1000 ml 1604 ml Intake IV Total 1000 ml 1604 ml # Voids 1 1 # Bowel Movements 0 0 Imaging Last Impressions Abdomen/Pelvis CT 04/08/17 0013 Signed Impressions: Service Date/Time: Saturday, April 08, 2017 01:20 - CONCLUSION: Unremarkable study. The appendix is grossly unremarkable. There are 2 calcifications in the right hemipelvis and I suspect they're both phleboliths. No evidence of hydronephrosis or hydroureter Gume Patel MD Laboratory Test 04/07/17 23:50 04/08/17 11:14 White Blood Count 8.0 TH/MM3 Red Blood Count 4.30 MIL/MM3 Hemoglobin 13.2 GM/DL Hematocrit 39.1 % Mean Corpuscular Volume 90.8 FL Mean Corpuscular Hemoglobin 30.6 PG Mean Corpuscular Hemoglobin Concent 33.7 % Red Cell Distribution Width 12.8 % Platelet Count 286 TH/MM3 Mean Platelet Volume 8.7 FL Neutrophils (%) (Auto) 75.2 % Lymphocytes (%) (Auto) 15.6 % Monocytes (%) (Auto) 6.7 % Eosinophils (%) (Auto) 1.8 % Basophils (%) (Auto) 0.7 % Neutrophils # (Auto) 6.1 TH/MM3 Lymphocytes # (Auto) 1.3 TH/MM3 Monocytes # (Auto) 0.5 TH/MM3 Eosinophils # (Auto) 0.1 TH/MM3 Basophils # (Auto) 0.1 TH/MM3 CBC Comment DIFF FINAL Differential Comment Blood Urea Nitrogen 12 MG/DL Creatinine 0.90 MG/DL Random Glucose 97 MG/DL Total Protein 7.7 GM/DL Albumin 4.1 GM/DL Calcium Level 8.9 MG/DL Alkaline Phosphatase 129 U/L Aspartate Amino Transf (AST/SGOT) 30 U/L Alanine Aminotransferase (ALT/SGPT) 49 U/L Total Bilirubin 1.6 MG/DL Sodium Level 142 MEQ/L Potassium Level 3.3 MEQ/L Chloride Level 106 MEQ/L Carbon Dioxide Level 26.3 MEQ/L Anion Gap 10 MEQ/L Estimat Glomerular Filtration Rate 92 ML/MIN Magnesium Level 2.1 MG/DL C-Reactive Protein 1.70 MG/DL Lipase 188 U/L Urine Color DARK-YELLOW Urine Turbidity HAZY Urine pH 6.0 Urine Specific [place] GREATER THAN 1.050 Urine Protein TRACE mg/dL Urine Glucose (UA) NEG mg/dL Urine Ketones NEG mg/dL Urine Occult Blood NEG Urine Nitrite NEG Urine Bilirubin SMALL Urine Urobilinogen 2.0 MG/DL Urine Leukocyte Esterase MOD Urine RBC 1 /hpf Urine WBC 9 /hpf Urine Squamous Epithelial Cells 15 /hpf Urine Mucus MOD /lpf Microscopic Urinalysis Comment CULTURE INDICATED Date/Time Source Procedure Growth Status 04/08/17 11:14 Urine Clean Catch Urine Culture Pending Received Physical Examination HEENT: PERRL; normocephalic; atraumatic; no jaundice. CHEST: CTA CARDIAC: RRR ABDOMEN: Soft, nondistended, RUQ TTP; no hepatosplenomegaly; bowel sounds are present in all four quadrants. EXTREMITIES: No clubbing, cyanosis, or edema. SKIN: Normal; no rash; no jaundice. 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 (Lea Borges [facility]) Assessment and Plan Plan ASSESSMENT - RUQ pain, n/v , diarrhea - diarrhea in last 2 days. RUQ pain starting 4-5 months ago while she was and worsening. US from 01/2017 showed sludge and tiny stones but US 04/07 did not show sludge or stones. MRCP 04/07 showed mild CBD dilatation, no stone or obstruction. CT unremarkable. HIDA pending - elevated LFTs - mild elevation ?obstructive pattern. review of old labs shows her ALP and Tbil have been elevated and fluctuated since 01/2017. on admission Tbil 1.6, AST 30, ALT 49, ALP 129. PLAN - await HIDA - monitor labs - clears when done with HIDA - further recs to follow This pt seen by myself and Dr Jaquez and this note is written on his behalf (Lea Borges) Physician Comments Patient seen and examined Agree with above Continue with current supportive care Monitor labs Workup so far has been negative MRCP, CAT scan, blood work We will proceed with an EGD tomorrow (Ky Jaquez MD) Lea Borges Apr 08, 2017 16:28 Ky Jaquez MD Apr 08, 2017 23:00
--- NOTE | 2017-04-08 17:24 | RADRPT ---
EXAM DATE/TIME: 04/08/2017 15:11 [place] COMPARISON: No previous studies available for comparison. INDICATIONS : Right sided abdominal pain for two weeks. DOSE: 4.1 mCi Tc99m Mebrofenin IV MEDICAL HISTORY : None SURGICAL HISTORY : None. ENCOUNTER: Initial ACUITY: 2 weeks PAIN SCALE: 5/10 LOCATION: Right flank TECHNIQUE: Following the intravenous administration of radiotracer, dynamic sequential images were performed wit h continuous acquisition. FINDINGS: HEPATIC KINETICS: There is prompt uptake of radiotracer in the liver. No focal defects are seen. There is normal rate of washout from the hepatic parenchyma. BILIARY CLEARANCE: Activity is first seen in the extrahepatic biliary system at 20 minutes. There is normal excretion i nto the small bowel. GALLBLADDER: Activity is first seen in the gallbladder at 20 minutes. Common bile duct kinetics are normal and th ere is no evidence of biliary obstruction. BILIARY ENTRIC REFLUX: None observed. CONCLUSION: Negative for cystic duct or common duct obstruction.. Reji Clemens MD FACR on April 08, 2017 at 17:21 Board Certified Radiologist. This report was verified electronically.
--- NOTE | 2017-04-08 17:51 | HHI.HP ---
[facility] Primary [facility] Physician No Primary Care Physician Admission Diagnosis Intractable abdominal pain, elevated lfts Diagnoses: (1) Right-sided back pain (2) Diarrhea (3) Abdominal pain Travel History International Travel<30 Days: No Contact w/Intl Traveler <30 Da: No Traveled to Known Affected Are: No History of Present Illness Written by Romario Braxton, acting as scribe for Dr. Saldaña on 04/08/17 at 17:51. This note was transcribed by scribe Romario Braxton. I, Dr. Roby Saldaña personally performed the history, physical exam, and medical decision making; and confirmed the accuracy of the information in the transcribed note. Authenticated by Dr. Roby Saldaña on 04/08/17 at 17:54. 26 year old female who presented to the ED for second time this week with complaints of abdominal pain, back pain, nausea, and diarrhea. Patient's reports no past medical history, recently had vaginal delivery on 02/18. Patient was recently seen in ED on 04/07 and had gallbladder US which showed mildly dilated common bile duct from uncertain etiology, gallbladder without stones or sludges. Patient also underwent MRCP which showed no retention or stones, did demonstrate common bile duct that was mildly dilated proximally and tapered down distally. She was advised to avoid trigger foods that are high in fat and return to ED if symptoms worsen. Patient reports that she went home and and was taking her Zofran for nausea. Pain however became worse last night on her left side of her abdomen. She also developed diarrhea which was yellow and green in color, last BM was last night. She continues to have right sided back pain and stats this has been there for the past two weeks. Denies any fever, chills, nausea, no vomiting, no dysuria, or trouble with urination. Patient reports that she is bottle and breast feeding, but is aware that she is to pump and dump breast milk while in the hospital and receiving medications that could pass through breast milk. All other systems reviewed negative Review of Systems Except as stated in HPI: all other systems reviewed are Neg Past Family Social History Past Medical History History of dilated common bile duct Past Surgical History Denies past surgical history Allergies: Coded Allergies: No Known Allergies (Verified Allergy, Unknown, 04/07/17) Family History Denies any family history Social History Once child who she recently gave to Tobacco use: denies Alcohol: denies Illicit drug use: denies Physical Exam Vital Signs Vital Signs Date Time Temp Pulse Resp B/P (MAP) Pulse Ox O2 Delivery O2 Flow Rate FiO2 04/08/17 12:20 98.0 74 16 128/83 (98) 99 04/08/17 11:11 17 04/08/17 11:06 97.8 64 16 136/81 (99) 100 Room Air 04/08/17 09:30 97.8 67 16 112/67 (82) 98 Room Air 04/08/17 07:00 98.1 69 16 105/61 (76) 100 Room Air 04/08/17 07:00 17 04/08/17 07:00 17 04/08/17 07:00 16 04/08/17 04:23 98.9 60 12 115/60 (78) 99 Room Air 04/07/17 23:35 99.0 70 18 133/76 (95) 100 Physical Exam GENERAL: This is a well-nourished, well-developed patient, in no apparent distress. SKIN: No rashes, ecchymoses or lesions. Cool and dry. HEAD: Atraumatic. Normocephalic. No temporal or scalp tenderness. EYES: Pupils equal round and reactive. Extraocular motions intact. No scleral icterus. No injection or drainage. ENT: Nose without bleeding, purulent drainage or septal hematoma. Throat without erythema, tonsillar hypertrophy or exudate. Uvula midline. Airway patent. NECK: Trachea midline. No JVD or lymphadenopathy. Supple, nontender, no meningeal signs. CARDIOVASCULAR: Regular rate and rhythm without murmurs, gallops, or rubs. RESPIRATORY: Clear to auscultation. Breath sounds equal bilaterally. No wheezes , rales, or rhonchi. GASTROINTESTINAL: Abdomen soft, tender right upper quadrant and epigastric areas , nondistended. No guarding. MUSCULOSKELETAL: Extremities without clubbing, cyanosis, or edema. No joint tenderness, effusion, or edema noted. No calf tenderness. Negative Homans sign bilaterally. NEUROLOGICAL: Awake and alert. Cranial nerves II through XII intact. Motor and sensory grossly within normal limits. Five out of 5 muscle strength in all muscle groups. Normal speech. Laboratory Laboratory Tests Test 04/07/17 23:50 04/08/17 11:14 White Blood Count 8.0 Red Blood Count 4.30 Hemoglobin 13.2 Hematocrit 39.1 Mean Corpuscular Volume 90.8 Mean Corpuscular Hemoglobin 30.6 Mean Corpuscular Hemoglobin Concent 33.7 Red Cell Distribution Width 12.8 Platelet Count 286 Mean Platelet Volume 8.7 Neutrophils (%) (Auto) 75.2 Lymphocytes (%) (Auto) 15.6 Monocytes (%) (Auto) 6.7 Eosinophils (%) (Auto) 1.8 Basophils (%) (Auto) 0.7 Neutrophils # (Auto) 6.1 Lymphocytes # (Auto) 1.3 Monocytes # (Auto) 0.5 Eosinophils # (Auto) 0.1 Basophils # (Auto) 0.1 CBC Comment DIFF FINAL Differential Comment Blood Urea Nitrogen 12 Creatinine 0.90 Random Glucose 97 Total Protein 7.7 Albumin 4.1 Calcium Level 8.9 Alkaline Phosphatase 129 Aspartate Amino Transf (AST/SGOT) 30 Alanine Aminotransferase (ALT/SGPT) 49 Total Bilirubin 1.6 Sodium Level 142 Potassium Level 3.3 Chloride Level 106 Carbon Dioxide Level 26.3 Anion Gap 10 Estimat Glomerular Filtration Rate 92 Magnesium Level 2.1 C-Reactive Protein 1.70 Lipase 188 Urine Color DARK-YELLOW Urine Turbidity HAZY Urine pH 6.0 Urine Specific [place] GREATER THAN 1.050 Urine Protein TRACE Urine Glucose (UA) NEG Urine Ketones NEG Urine Occult Blood NEG Urine Nitrite NEG Urine Bilirubin SMALL Urine Urobilinogen 2.0 Urine Leukocyte Esterase MOD Urine RBC 1 Urine WBC 9 Urine Squamous Epithelial Cells 15 Urine Mucus MOD Microscopic Urinalysis Comment CULTURE INDICATED Date/Time Source Procedure Growth Status 04/08/17 11:14 Urine Clean Catch Urine Culture Pending Received Result Diagram: 04/07/17 23504/07/17 235 Caprini VTE Risk Assessment Caprini VTE Risk Assessment: No/Low Risk (score <= 1) Caprini Risk Assessment Model Point Value = 1 Point Value = 2 Point Value = 3 Point Value = 5 Age 41-60 Minor surgery BMI > 25 kg/m2 Swollen legs Varicose veins or History of unexplained or recurrent spontaneous Oral contraceptives or hormone replacement Sepsis (< 1 month) Serious lung disease, including pneumonia (< 1 month) Abnormal pulmonary function Acute myocardial infarction Congestive heart failure (< 1 month) History of inflammatory bowel disease Medical patient at bed rest Age 61-74 Arthroscopic surgery Major open surgery (> 45 min) Laparoscopic surgery (> 45 min) Malignancy Confined to bed (> 72 hours) Immobilizing plaster cast Central venous access Age >= 75 History of VTE Family history of VTE Factor V Leiden Prothrombin [id number] Lupus anticoagulant Anticardiolipin antibodies Elevated serum homocysteine Heparin-induced thrombocytopenia Other congenital or acquired thrombophilia Stroke (< 1 month) Elective arthroplasty Hip, pelvis, or leg fracture Acute spinal cord injury (< 1 month) Prophylaxis Regimen Total Risk Factor Score Risk Level Prophylaxis Regimen 0-1 Low Early ambulation 2 Moderate Order ONE of the following: *Sequential Compression Device (SCD) *Heparin 5000 units SQ BID 3-4 Higher Order ONE of the following medications: *Heparin 5000 units SQ TID *Enoxaparin/Lovenox 40 mg SQ daily (WT < 150 kg, CrCl > 30 mL/min) *Enoxaparin/Lovenox 30 mg SQ daily (WT < 150 kg, CrCl > 10-29 mL/min) *Enoxaparin/Lovenox 30 mg SQ BID (WT < 150 kg, CrCl > 30 mL/min) AND/OR *Sequential Compression Device (SCD) 5 or more Highest Order ONE of the following medications: *Heparin 5000 units SQ TID (Preferred with Epidurals) *Enoxaparin/Lovenox 40 mg SQ daily (WT < 150 kg, CrCl > 30 mL/min) *Enoxaparin/Lovenox 30 mg SQ daily (WT < 150 kg, CrCl > 10-29 mL/min) *Enoxaparin/Lovenox 30 mg SQ BID (WT < 150 kg, CrCl > 30 mL/min) AND *Sequential Compression Device (SCD) Assessment and Plan Problem List: (1) Right-sided back pain ICD Code: M54.9 - Dorsalgia, unspecified (2) Diarrhea ICD Code: R19.7 - Diarrhea, unspecified (3) Abdominal pain ICD Code: R10.9 - Unspecified abdominal pain Assessment and Plan 26 year old female who presented to the ED for second time this week with complaints of abdominal pain, back pain, nausea, and diarrhea. Right sided abdominal pain, acute - Recently seen in ED for same issue on 04/07, cleared for DC however continues to have abdominal pain, nausea, and now diarrhea for 2 days. - CT done this admission reviewed by myself showing grossly normal appendix, 2 calcifications in the right hemipelvis which radiologist though were suspicious for phleboliths, no hydronephrosis or hydroureter. - Gallbladder US dine on 04/07 personally reviewed showing mildly dilated common bile duct with uncertain etiology, gallbladder without stones or sludge. - MRCP done 04/07 which showed no retention or stones, did demonstrate common bile duct that was mildly dilated proximally and tapered down distally. - Will keep NPO for now as she is still having abdominal pain and tenderness. - GI consult in place, appreciate recommendations. - Will check stool for C-diff - Order placed for HIDA scan - Pain control with the use of Morphine IV - On PPI for GI prophylaxis - IVF NS with 20meq KCL as patient will remain NPO Nausea, acute - Suspect this is secondary to abdominal pain or possible gastroenteritis. - Zofran IV for nausea Right sided back pain, acute - Ongoing for two weeks, suspect this pain could be related to her abdominal pain - GI workup in progress - UA done showing moderate leukocyte esterase, culture in progress. - Will hold off on antibiotics, patient denies dysuria or trouble with urination. VTE - Early ambulation and SCD's Discussed Condition With Patient Problem Qualifiers (1) Right-sided back pain: Qualified Codes: M54.5 - Low back pain Romario Braxton Apr 08, 2017 17:51 Roby Saldaña MD Apr 08, 2017 17:56
[2017-04-08 20:00] VITALS: BP 123/84; PULSE 62; RESP 18; TEMP 97.8; O2SAT 100
[2017-04-09] VITALS: BP 123/75; PULSE 61; RESP 18; TEMP 98; O2SAT 99
[2017-04-09 04:00] VITALS: BP 132/78; PULSE 61; RESP 18; TEMP 98.5; O2SAT 100
[2017-04-09 04:50] LABS: AUTOMATED NEUTROPHIL # 3.8 TH/MM3 (1.8-7.7); BASOPHIL # 0.1 TH/MM3 (0-0.2); BASOPHIL % 0.8 % (0.0-2.0); EOSINOPHIL # 0.3 TH/MM3 (0-0.4); EOSINOPHIL % 5.4 % (0.0-4.0); HEMATOCRIT 36.4 % (35.0-46.0); HEMO FLAGS DIFF FINAL; LYMPH % 26.6 % (9.0-44.0); LYMPHOCYTE # 1.7 TH/MM3 (1.0-4.8); MEAN CELL VOLUME 90.9 FL (80.0-100.0); MEAN CORPUSCULAR HEMOGLOBIN 31.4 PG (27.0-34.0); MEAN CORPUSCULAR HGB CONC 34.5 % (32.0-36.0); MONO % 6.7 % (0.0-8.0); NEUT % 60.5 % (16.0-70.0); PLATELET COUNT 256 TH/MM3 (150-450); RED BLOOD COUNT 4.01 MIL/MM3 (4.00-5.30); RED CELL DISTRIBUTION WIDTH 12.7 % (11.6-17.2); WHITE BLOOD COUNT 6.2 TH/MM3 (4.0-11.0)
[2017-04-09] MEDS: NS + KCL 20 MEQ INJ 1,000 ML IV SCH ×2 (05:00→15:00)
[2017-04-09 05:25] LABS: POTASSIUM 3.9 MEQ/L (3.5-5.1)
[2017-04-09 08:00] VITALS: BP 108/68; PULSE 62; RESP 20; TEMP 98.4
[2017-04-09] MEDS ORDERED: PANTOPRAZOLE SODIUM 40 MG VIAL IV PUSH SCH (09:00)
[2017-04-09] MEDS: SODIUM CHLORIDE 0.9% FLUSH 10 ML FLUSH IV FLUSH SCH ×2 (09:00→19:46)
--- NOTE | 2017-04-09 10:21 | HHI.PR ---
Subjective Remarks Follow-up abdominal pain. States she is much better has not required pain medications today. She is hungry and wants to eat. Awaiting EGD. Dw RN Objective Vitals Vital Signs Date Time Temp Pulse Resp B/P (MAP) Pulse Ox O2 Delivery O2 Flow Rate FiO2 04/09/17 04:00 98.5 61 18 132/78 (96) 100 04/09/17 00:00 98.0 61 18 123/75 (91) 99 04/08/17 20:00 97.8 62 18 123/84 (97) 100 04/08/17 12:20 98.0 74 16 128/83 (98) 99 04/08/17 11:11 17 04/08/17 11:06 97.8 64 16 136/81 (99) 100 Room Air I/O 04/08/17 04/08/17 04/08/17 04/09/17 04/09/17 04/09/17 07:00 15:00 23:00 07:00 15:00 23:00 Intake Total 1000 ml 1604 ml 0 ml 901 ml Balance 1000 ml 1604 ml 0 ml 901 ml Intake Oral 0 ml 0 ml IV Total 1000 ml 1604 ml 901 ml # Voids 1 1 1 1 # Bowel Movements 0 0 Result Diagram: 04/09/17 0411 04/09/17 0411 Imaging Last Impressions Hepatobiliary Scan Nuclear Medicine 04/08/17 1423 Signed Impressions: Service Date/Time: Saturday, April 08, 2017 15:11 - CONCLUSION: Negative for cystic duct or common duct obstruction.. Reji Clemens MD FACR Abdomen/Pelvis CT 04/08/17 0013 Signed Impressions: Service Date/Time: Saturday, April 08, 2017 01:20 - CONCLUSION: Unremarkable study. The appendix is grossly unremarkable. There are 2 calcifications in the right hemipelvis and I suspect they're both phleboliths. No evidence of hydronephrosis or hydroureter Gume Patel MD Objective Remarks GENERAL: This is a well-nourished, well-developed patient, in no apparent distress. SKIN: No rashes, ecchymoses or lesions. Cool and dry. CARDIOVASCULAR: Regular rate and rhythm without murmurs, gallops, or rubs. RESPIRATORY: Clear to auscultation. Breath sounds equal bilaterally. No wheezes , rales, or rhonchi. GASTROINTESTINAL: Abdomen soft, nontender, nondistended. No guarding. MUSCULOSKELETAL: Extremities without clubbing, cyanosis, or edema. No joint tenderness, effusion, or edema noted. No calf tenderness. Negative Homans sign bilaterally. NEUROLOGICAL: Awake and alert. Cranial nerves II through XII intact. Motor and sensory grossly within normal limits. Five out of 5 muscle strength in all muscle groups. Normal speech. Procedures EGD A/P Problem List: (1) Right-sided back pain ICD Code: M54.9 - Dorsalgia, unspecified (2) Diarrhea ICD Code: R19.7 - Diarrhea, unspecified (3) Abdominal pain ICD Code: R10.9 - Unspecified abdominal pain Assessment and Plan 26 year old female who presented to the ED for second time this week with complaints of abdominal pain, back pain, nausea, and diarrhea. Right sided abdominal pain, acute. Improving - Recently seen in ED for same issue on 04/07, cleared for DC however continues to have abdominal pain, nausea, and now diarrhea for 2 days. - CT done this admission reviewed by myself showing grossly normal appendix, 2 calcifications in the right hemipelvis which radiologist though were suspicious for phleboliths, no hydronephrosis or hydroureter. - Gallbladder US done on 04/07 personally reviewed showing mildly dilated common bile duct with uncertain etiology, gallbladder without stones or sludge. - MRCP done 04/07 which showed no retention or stones, did demonstrate common bile duct that was mildly dilated proximally and tapered down distally. - HIDA negative. - GI for EGd - Will check stool for C-diff, diarrhea also improving - Pain control with the use of Morphine IV - On PPI for GI prophylaxis - IVF NS with 20meq KCL while NPO Nausea, acute. Improved - Suspect this is secondary to abdominal pain or possible gastroenteritis. - Zofran IV for nausea Right sided back pain, acute. Improved - Ongoing for two weeks, suspect this pain could be related to her abdominal pain - GI workup in progress - UA done showing moderate leukocyte esterase, culture in progress. - Will hold off on antibiotics, patient denies dysuria or trouble with urination. VTE - Early ambulation and SCD's Discharge Planning Possible discharge today pending EGD. Patient advised not to breast-feed the baby at this time because of the medications she has received Problem Qualifiers (1) Right-sided back pain: Qualified Codes: M54.5 - Low back pain Roby Saldaña MD Apr 09, 2017 10:21
[2017-04-09] MEDS ORDERED: PROPOFOL 200 MG/20 ML AMP IV ONE (12:00)
[2017-04-09] MEDS ORDERED: SUCCINYLCHOLINE CHLORIDE 100 MG/5 ML SYRINGE IV PUSH ONE (12:00)
[2017-04-09] MEDS ORDERED: LIDOCAINE HCL 1% PF 5 ML SYRINGE OTHER ONE (12:00)
[2017-04-09 12:23] VITALS: BP 128/76; PULSE 97; RESP 18; TEMP 98.7; O2SAT 100
--- NOTE | 2017-04-09 12:25 | HHI.DCPOC ---
Discharge Care Plan Diagnosis: (1) Right-sided back pain (2) Diarrhea (3) Abdominal pain Your Health Problems Are: Difficulty with ADL Exercise Tolerance Goals to Promote Your Health * To prevent worsening of your condition and complications * To maintain your health at the optimal level Directions to Meet Your Goals Take your medications as prescribed Follow your dietary instruction Follow activity as directed Keep your appointments as scheduled Take your immunizations and boosters as scheduled If your symptoms worsen call your PCP, if no PCP go to Urgent Care Center or Emergency Room Smoking is Dangerous to Your Health. Avoid second hand smoke Call the 24-hour hour crisis hotline for domestic abuse at Roby Saldaña MD Apr 09, 2017 12:25
--- NOTE | 2017-04-09 14:47 | PD.PROCEDR ---
GI Procedure REFERRING PHYSICIAN B[facility] PROCEDURE PERFORMED EGD INDICATION FOR PROCEDURE Abdominal pain, nausea vomiting PROCEDURE: The procedure, risks and benefits were discussed with Ms. Capps and informed consent was obtained. Anesthesia sedated her with Diprivan. She was placed in the left lateral decubitus position. EGD: The Pentax videoscope was introduced through the oropharynx and advanced to the second portion of the duodenum under direct visualization. Retroflexion was performed in the stomach. FINDINGS: Esophagus this was normal Stomach this too was unremarkable and within normal limits Duodenum this was normal ESTIMATED BLOOD LOSS: None SPECIMENS REMOVED: None COMPLICATIONS: None IMPRESSION: Normal EGD PLAN: Advance diet as tolerated Monitor labs Continue with current supportive care Ky Jaquez MD Apr 09, 2017 14:47
[2017-04-09 16:07] VITALS: BP 117/71; PULSE 51; RESP 18; TEMP 98.6; O2SAT 99
[2017-04-09 20:00] VITALS: BP 123/65; PULSE 74; RESP 18; TEMP 97.8; O2SAT 100
== END 2017-04-09 21:40 | disposition home or self-care (01) ==
LOC: NEPE 23:31 → NEDA 04-08 02:24 → NEDH 04-08 06:32 → N03B 04-08 12:38
PROVIDERS: ADMIT Hospitalist; ATTEND Hospitalist
DX: M54.5 Low back pain (principal); R19.7 Diarrhea, unspecified; R10.9 Unspecified abdominal pain; K80.20 Calculus of gallbladder without cholecystitis without obstruction; R79.89 Other specified abnormal findings of blood chemistry
CPT/HCPCS: 00740; 43235; 74177; 78226; 80048; 80053; 81001; 83690; 83735; 84703; 85025; 86140; 87086; 96361; 96374; 96375; 96376; 99285; A9537; C9113; G0378; J0330; J1885; J2270; J2405; J3010; J3480; J7030; Q9967